=== PATIENT | female | born 1980 | race Caucasian/White ===

== ENCOUNTER 2016-04-23 19:52 | Emergency (ER) | payer OTHER ==
[2016-04-23 20:09] VITALS: BP 124/73; PULSE 127; RESP 18; TEMP 99.4
[2016-04-23] MEDS ORDERED: DIAZEPAM 5 MG/ML 2 ML SYRINGE IM ONE (21:37)
--- NOTE | 2016-04-23 21:45 | ED ---
Neck Injury/Pain HPI - General Chief Complaint: Neck Pain/Injury Stated Complaint: neck,shoulder,back pain SOB Time Seen by Provider: 04/23/16 20:58 Source: RN notes reviewed Mode of arrival: ambulatory Limitations: no limitations - History of Present Illness Initial Comments: Patient is a 35-year-old female presents to the emergency room for evaluation of right-sided neck and shoulder pain. Patient states pain began about 2 days ago. Patient states she woke up with pain on the right side of her neck region down to her shoulder and underneath her shoulder blade. Patient states she's been taking Aleve and [place] with no relief of symptoms. 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 Patient states follow-up with a neurosurgeon about 3 years ago but has not followed up since. Patient states she is experiencing tingling in her fingers. Patient denies weakness. Patient states the right side of her neck and shoulder feels stiff. Patient denies any recent falls or trauma to her neck. Patient denies recent heavy lifting or changes in physical activity. - Related Data Home Medications Medication Instructions Recorded Confirmed ALPRAZolam [ALPRAZolam] 1 mg PO BID 06/23/15 04/23/16 Citalopram Hydrobromide [CeleXA] 20 mg PO HS 06/23/15 04/23/16 Ergocalciferol (Vitamin D2) 50,000 unit PO OLIVA 06/23/15 04/23/16 [Drisdol] HYDROcodone/APAP 10-325MG [[place] 0.5 - 1 tab PO DAILY PRN 06/23/15 04/23/16 10-325] Allergies Allergy/AdvReac Type Severity Reaction Status Date / Time iodine Allergy Unknown Verified 04/23/16 20:09 Review of Systems ROS Statement: Those systems with pertinent positive or pertinent negative responses have been documented in the HPI. ROS Other: All systems not noted in ROS Statement are negative. 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 Limitations: no limitations General appearance: alert, in no apparent distress Head exam: Present: atraumatic, normocephalic, normal inspection Eye exam: Present: normal appearance Pupils: Present: normal accommodation ENT exam: Present: normal exam Neck exam: Present: tenderness (tenderness and spasming of the right trapezius muscle. No cervical spine tenderness on palpation.) Respiratory exam: Present: normal lung sounds bilaterally. Absent: respiratory distress Extremities exam: Present: normal inspection Back exam: Present: normal inspection Neurological exam: Present: alert, oriented X3, CN II-XII intact, normal gait Psychiatric exam: Present: normal affect, normal mood Skin exam: Present: warm, dry, intact, normal color. Absent: rash Course Vital Signs 04/23/16 20:02 Temperature 99.4 F Pulse Rate 127 H Respiratory 18 Rate Blood Pressure 124/73 O2 Sat by Pulse 100 Oximetry Medical Decision Making - Medical Decision Making Patient is a 35-year-old female presents emergency room for evaluation of right- sided neck pain. Patient also complaining shortness of breath 2 days. 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 Offered further workup shortness of breath patient refused. Advised patient to follow-up with her neurosurgeon on Sunday for further evaluation of neck pain. Patient states she is not feeling better after Valium given. Offered to give patient further pain medications and patient declined and walked out of the emergency room before discharged. Disposition Clinical Impression: Strain of neck muscle, Cervical radiculopathy Disposition: Left Against Medical Advice Condition: Stable Referrals: Rico Coe DO [Primary Care Provider] - 1-2 days Time of Disposition: 22:35
== END 2016-04-23 22:39 | disposition left against medical advice (07) ==
LOC: EC 19:52
DX: S16.1XXA Strain of muscle, fascia and tendon at neck level, initial encounter (principal); M54.12 Radiculopathy, cervical region; X58.XXXA Exposure to other specified factors, initial encounter; R06.02 Shortness of breath; I47.1 Supraventricular tachycardia; M25.511 Pain in right shoulder; Z79.899 Other long term (current) drug therapy; Z79.891 Long term (current) use of opiate analgesic; Z91.048 Other nonmedicinal substance allergy status; Z98.61 Coronary angioplasty status; F32.9 Major depressive disorder, single episode, unspecified; F17.200 Nicotine dependence, unspecified, uncomplicated
CPT/HCPCS: 96372; 99283; J3360

== ENCOUNTER 2016-10-23 11:17 | Emergency (ER) | payer OTHER ==
[2016-10-23] MEDS ORDERED: FAMOTIDINE 20 MG/2 ML VIAL IV STA (11:44)
[2016-10-23] MEDS ORDERED: ONDANSETRON 4 MG/2 ML VIAL IVP STA ×2 (11:44→13:32)
[2016-10-23] MEDS ORDERED: SODIUM CHLORIDE 0.9% 1,000 ML IV STA ×2 (11:44)
--- NOTE | 2016-10-23 12:00 | ED ---
General Adult HPI - General Chief complaint: Abdominal Pain Stated complaint: abd & back pain/heart racing Time Seen by Provider: 10/23/16 11:37 Source: patient, RN notes reviewed Mode of arrival: ambulatory Limitations: no limitations - History of Present Illness Initial comments: Patient is a 30-year-old female presents to the emergency room today with a chief complaint of abdominal pain to the epigastric and left upper she also admits to history of SVT. States she has been feeling her heart racing more she admits that she's also experiences some left side chest wall pain. She states all the symptoms started 2 days ago. Patient does admit that she feels like the pain radiates through to the back. Patient admits to feeling nauseated. She denies any other complaints or associated symptoms. Patient denies any recent fever, chills, shortness of breath,, numbness or tingling, dysuria or hematuria, constipation or diarrhea, headaches or visual changes, or any other complaints. - Related Data Home Medications Medication Instructions Recorded Confirmed ALPRAZolam [ALPRAZolam] 1 mg PO HS PRN 06/23/15 10/23/16 HYDROcodone/APAP 10-325MG [[place] 1 tab PO DAILY PRN 06/23/15 10/23/16 10-325] Previous Rx's Medication Instructions Recorded Omeprazole 20 mg PO DAILY #20 capsule. 10/23/16 Ondansetron Odt [Zofran ODT] 4 mg PO Q8HR PRN #20 tab 10/23/16 Allergies Allergy/AdvReac Type Severity Reaction Status Date / Time Iodinated Contrast- Oral and Allergy Unknown Verified 10/23/16 11:39 IV Dye Review of Systems ROS Statement: Those systems with pertinent positive or pertinent negative responses have been documented in the HPI. ROS Other: All systems not noted in ROS Statement are negative. 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 Eye: Pupils are equal, round and reactive to light, extra-ocular movements are intact. No nystagmus. There is normal conjunctiva bilaterally. No signs of icterus. Ears, nose, mouth and throat: There are moist mucous membranes and no oral lesions. Neck: The neck is supple, there is no tenderness or JVD. Cardiovascular: There is a regular rate and rhythm. No murmur, rub or gallop is appreciated. pain anterior chest wall on palpation which reproduces her symptoms. Respiratory: Lungs are clear to auscultation, respirations are non-labored, breath sounds are equal. No wheezes, stridor, rales, or rhonchi. Gastrointestinal: Normal appearance abdomen. Normal bowel sounds. Abdomen soft on palpation. Patient does have tenderness epigastric and left upper quadrants. No rebound tenderness. No guarding. She does have left-sided CVA tenderness.. Musculoskeletal: Normal ROM, no tenderness. Strength 5/5. Sensation intact. Pulses equal bilaterally 2+. Neurological: A&O x 3. CN II-XII intact, There are no obvious motor or sensory deficits. Coordination appears grossly intact. Speech is normal. Skin: Skin is warm and dry and no rashes or lesions are noted. Psychiatric: Cooperative, appropriate mood & affect, normal judgment. Limitations: no limitations Course Vital Signs 10/23/16 10/23/16 11:30 12:09 Temperature 98.1 F Pulse Rate 112 H 100 Respiratory 20 18 Rate Blood Pressure 102/74 O2 Sat by Pulse 99 100 Oximetry Medical Decision Making - Medical Decision Making Patient reexamined at this time shows no signs of distress. Resting comfortably in the stretcher. Patient's abdomen soft on palpation. Labs been reviewed are unremarkable. She does not that symptoms started 3 days ago. EKG shows normal sinus rhythm. Patient. Enzymes are negative. Her pain is reproduced on palpation to the epigastric area. Peptic ulcer disease, versus gallbladder, versus gastritis were discussed with patient. Patient will be discharged home with nausea medication and omeprazole for symptoms advised follow-up with her GI doctor. Advised return to emergency room symptoms increase worsen or for new concerns. She states understanding and is in agreement. - Lab Data Result diagrams: 10/23/16 12:00 10/23/16 12:00 Lab Results 10/23/16 10/23/16 10/23/16 Range/Units 12:00 12:00 12:00 WBC 10.6 (3.8-10.6) k/uL RBC 4.83 (3.80-5.40) m/uL Hgb 14.7 (11.4-16.0) gm/dL Hct 45.7 (34.0-46.0) % MCV 94.5 (80.0-100.0) fL MCH 30.4 (25.0-35.0) pg MCHC 32.1 (31.0-37.0) g/dL RDW 14.2 (11.5-15.5) % Plt Count 297 (150-450) k/uL Neutrophils % 69 % Lymphocytes % 20 % Monocytes % 5 % Eosinophils % 5 % Basophils % 0 % Neutrophils # 7.3 (1.3-7.7) k/uL Lymphocytes # 2.2 (1.0-4.8) k/uL Monocytes # 0.6 (0-1.0) k/uL Eosinophils # 0.5 (0-0.7) k/uL Basophils # 0.0 (0-0.2) k/uL Sodium 143 (137-145) mmol/L Potassium 4.4 (3.5-5.1) mmol/L Chloride 106 (98-107) mmol/L Carbon Dioxide 26 (22-30) mmol/L Anion Gap 11 mmol/L BUN 8 (7-17) mg/dL Creatinine 0.72 (0.52-1.04) mg/dL Est GFR (MDRD) Af Amer >60 (>60 ml/min/1.73 sqM) Est GFR (MDRD) Non-Af >60 (>60 ml/min/1.73 sqM) Glucose 88 (74-99) mg/dL Calcium 9.5 (8.4-10.2) mg/dL Total Bilirubin 0.3 (0.2-1.3) mg/dL AST 18 (14-36) U/L ALT 25 (9-52) U/L Alkaline Phosphatase 59 (38-126) U/L Total Creatine Kinase <20 L (30-135) U/L CK-MB (CK-2) <0.2 (0.0-2.4) ng/mL CK-MB (CK-2) Rel Index Troponin I <0.012 (0.000-0.034) ng/mL Total Protein 7.7 (6.3-8.2) g/dL Albumin 4.7 (3.5-5.0) g/dL Amylase 43 (30-110) U/L Lipase 111 (23-300) U/L Urine Color Urine Appearance (Clear) Urine pH (5.0-8.0) Ur Specific [place] (1.001-1.035) Urine Protein (Negative) Urine Glucose (UA) (Negative) Urine Ketones (Negative) Urine Blood (Negative) Urine Nitrite (Negative) Urine Bilirubin (Negative) Urine Urobilinogen (<2.0) mg/dL Ur Leukocyte Esterase (Negative) Urine HCG, Qual (Not Detectd) 10/23/16 10/23/16 Range/Units 12:00 12:00 WBC (3.8-10.6) k/uL RBC (3.80-5.40) m/uL Hgb (11.4-16.0) gm/dL Hct (34.0-46.0) % MCV (80.0-100.0) fL MCH (25.0-35.0) pg MCHC (31.0-37.0) g/dL RDW (11.5-15.5) % Plt Count (150-450) k/uL Neutrophils % % Lymphocytes % % Monocytes % % Eosinophils % % Basophils % % Neutrophils # (1.3-7.7) k/uL Lymphocytes # (1.0-4.8) k/uL Monocytes # (0-1.0) k/uL Eosinophils # (0-0.7) k/uL Basophils # (0-0.2) k/uL Sodium (137-145) mmol/L Potassium (3.5-5.1) mmol/L Chloride (98-107) mmol/L Carbon Dioxide (22-30) mmol/L Anion Gap mmol/L BUN (7-17) mg/dL Creatinine (0.52-1.04) mg/dL Est GFR (MDRD) Af Amer (>60 ml/min/1.73 sqM) Est GFR (MDRD) Non-Af (>60 ml/min/1.73 sqM) Glucose (74-99) mg/dL Calcium (8.4-10.2) mg/dL Total Bilirubin (0.2-1.3) mg/dL AST (14-36) U/L ALT (9-52) U/L Alkaline Phosphatase (38-126) U/L Total Creatine Kinase (30-135) U/L CK-MB (CK-2) (0.0-2.4) ng/mL CK-MB (CK-2) Rel Index Troponin I (0.000-0.034) ng/mL Total Protein (6.3-8.2) g/dL Albumin (3.5-5.0) g/dL Amylase (30-110) U/L Lipase (23-300) U/L Urine Color Colorless Urine Appearance Clear (Clear) Urine pH 8.0 (5.0-8.0) Ur Specific [place] 1.002 (1.001-1.035) Urine Protein Negative (Negative) Urine Glucose (UA) Negative (Negative) Urine Ketones Negative (Negative) Urine Blood Negative (Negative) Urine Nitrite Negative (Negative) Urine Bilirubin Negative (Negative) Urine Urobilinogen <2.0 (<2.0) mg/dL Ur Leukocyte Esterase Negative (Negative) Urine HCG, Qual Not Detected (Not Detectd) Disposition Clinical Impression: Abdominal pain Disposition: HOME SELF-CARE Condition: Good Instructions: Abdominal Pain (ED) Additional Instructions: Please use medication as discussed. Please follow-up with family doctor in the next 2 days of symptoms have not improved. Please return to emergency room if the symptoms increase or worsen or for any other concerns. Prescriptions: Omeprazole 20 mg PO DAILY #20 capsule. Ondansetron Odt [Zofran ODT] 4 mg PO Q8HR PRN #20 tab PRN Reason: Nausea Referrals: Rico Coe DO [Primary Care Provider] - 1-2 days Time of Disposition: 13:32
[2016-10-23 12:11] VITALS: RESP 18
[2016-10-23 12:15] LABS: Basophils % (A) 0 %; CH 31.6; CHCM 33.6; Eosinophils # (A) 0.5 k/uL (0-0.7); Eosinophils % (A) 5 %; HCT 45.7 % (34.0-46.0); HDW 2.28; HGB 14.7 gm/dL (11.4-16.0); Luc # (Auto) 0.06; Luc % (Auto) 1; Lymphocytes # (A) 2.2 k/uL (1.0-4.8); Lymphocytes % (A) 20 %; MCH 30.4 pg (25.0-35.0); MCHC 32.1 g/dL (31.0-37.0); MCV 94.5 fL (80.0-100.0); Mean Platelet Volume 7.4; Monocytes # (A) 0.6 k/uL (0-1.0); Monocytes % (A) 5 %; Neutrophils # (A) 7.3 k/uL (1.3-7.7); Neutrophils % (A) 69 %; RBC 4.83 m/uL (3.80-5.40); RDW 14.2 % (11.5-15.5); WBC 10.6 k/uL (3.8-10.6); WBC (Perox) 11.02
[2016-10-23 12:26] LABS: ALT 25 U/L (9-52); AST 18 U/L (14-36); Alkaline Phosphatase 59 U/L (38-126); Amylase 43 U/L (30-110); Anion Gap 11 mmol/L; Blood Urea Nitrogen 8 mg/dL (7-17); Calcium 9.5 mg/dL (8.4-10.2); Carbon Dioxide 26 mmol/L (22-30); Chloride 106 mmol/L (98-107); Glucose 88 mg/dL (74-99); Non-African American GFR(MDRD) >60 (>60 ml/min/1.73 sqM); Potassium 4.4 mmol/L (3.5-5.1); Sodium 143 mmol/L (137-145); Total Bilirubin 0.3 mg/dL (0.2-1.3); Total Protein 7.7 g/dL (6.3-8.2)
[2016-10-23 12:30] LABS: Appearance,Urine Clear (Clear); Bilirubin,Urine Negative (Negative); Glucose,Urine (UA) Negative (Negative); Ketones,Urine Negative (Negative); Leukocyte Esterase,Urine Negative (Negative); Nitrite,Urine Negative (Negative); Protein,Urine Negative (Negative); Specific Gravity,Urine 1.002 (1.001-1.035); UA Billing (MACRO vs. MICRO) CHEM; Urobilinogen,Urine <2.0 mg/dL (<2.0)
[2016-10-23 12:37] LABS: Creatine Kinase <20 U/L (30-135)
[2016-10-23 12:50] LABS: Creatine Kinase MB <0.2 ng/mL (0.0-2.4); Troponin I <0.012 ng/mL (0.000-0.034)
--- NOTE | 2016-10-23 12:54 | XR ---
EXAMINATION TYPE: XR chest 2V DATE OF EXAM: 10/23/2016 COMPARISON: 06/23/2015 HISTORY: 36-year-old female left-sided chest pain TECHNIQUE: PA and lateral views FINDINGS: The cardiomediastinal silhouette, aorta, and pulmonary vasculature are within normal limits. Lungs an d pleural spaces are clear. IMPRESSION: No acute cardiopulmonary process.
--- NOTE | 2016-10-23 12:55 | XR ---
EXAMINATION TYPE: XR KUB DATE OF EXAM: 10/23/2016 CLINICAL DATA: 36 year-old female epigastric pain, PHH COMPARISON: 05/27/2012 FINDINGS: Lung bases are clear. No evidence for free intraperitoneal air. No dilated small bowel or air-fluid levels. Scattered air and stool seen throughout the colon extendi ng distally into the rectum. Mild to moderate stool burden. No suspicious calcifications identified. IMPRESSION: 1. Mild to moderate stool burden. 2.No evidence of bowel obstruction or free intraperitoneal air.
[2016-10-23] MEDS ORDERED: PANTOPRAZOLE 40 MG/10 ML VIAL IVP STA (13:32)
[2016-10-23 13:44] VITALS: BP 96/57; PULSE 72; TEMP 98.5
== END 2016-10-23 13:51 | disposition home or self-care (01) ==
LOC: EC 11:17
DX: R10.13 Epigastric pain (principal); R10.12 Left upper quadrant pain; R07.89 Other chest pain; R11.0 Nausea; I47.1 Supraventricular tachycardia; F17.200 Nicotine dependence, unspecified, uncomplicated; Z95.5 Presence of coronary angioplasty implant and graft; Z98.890 Other specified postprocedural states; Z91.041 Radiographic dye allergy status
CPT/HCPCS: 36415; 93005; 80053; 82150; 82550; 82553; 83690; 84484; 85025; 81003; 81025; 71020; 74000; 99284; 96374; 96375 ×2; 96376; 96361; J2405; C9113

== ENCOUNTER → 2016-10-27 | Outpatient (CLI) | payer OTHER ==
--- NOTE | 2016-10-27 17:42 | NM ---
EXAMINATION TYPE: NM hepatobiliary w EF DATE OF EXAM: 10/27/2016 COMPARISON: NONE HISTORY: Pain with abnormal liver function test TECHNIQUE: After the intravenous administration of 4.6 mCi Tc 99m Mebrofenin hepatobiliary scintigrap hy is performed. Immediate images post injection. FINDINGS: There is satisfactory initial accumulation of tracer by the liver. The gallbladder is visualized wit hin 6 minutes. The small bowel activity is noted within 12 minutes. At one hour 8 ounces of oral en sure plus is given to mimic CCK and gallbladder ejection fraction is calculated at 82 %, in the lovely l range. Therefore there is no scintigraphic evidence of cystic or common bile duct obstruction to delatorre ggest acute cholecystitis or gallbladder dyskinesia. IMPRESSION: Exam is within normal limits.
== END ==
LOC: RADNMMAIN 15:05
PROVIDERS: ATTEND Family Medicine
DX: R11.2 Nausea with vomiting, unspecified (principal); R94.5 Abnormal results of liver function studies; R10.9 Unspecified abdominal pain
CPT/HCPCS: 78226; A9537

== ENCOUNTER → 2017-05-24 | Outpatient (CLI) | payer OTHER ==
--- NOTE | 2017-05-24 16:28 | CT ---
EXAMINATION TYPE: CT shoulder LT wo con DATE OF EXAM: 05/24/2017 COMPARISON: NONE HISTORY: Left sided shoulder pain post trauma CT DLP: 252.9 mGycm Automated exposure control for dose reduction was used. FINDINGS: No acute fractures are evident. The acromioclavicular junction appears normal. The humeral head artic ulates with the glenoid. The joint space appears preserved. No significant joint effusion is evident. Soft tissues at the shoulder appear normal. IMPRESSION: 1. NO ACUTE FRACTURES IDENTIFIED. 2. ORIENTATION OF THE HUMERUS IN RELATION TO THE GLENOID APPEARS NORMAL. NO SUSPICIOUS CHANGES TO SUG GEST ACUTE ROTATOR CUFF TEAR ARE IDENTIFIED.
== END | disposition home or self-care (01) ==
LOC: RADCTMAIN 14:14
PROVIDERS: ATTEND Orthopaedic Surgery
DX: M25.512 Pain in left shoulder (principal); M65.812 Other synovitis and tenosynovitis, left shoulder; M75.42 Impingement syndrome of left shoulder; M25.522 Pain in left elbow; M75.82 Other shoulder lesions, left shoulder

== ENCOUNTER 2019-12-01 15:46 | Emergency (ER) | payer OTHER ==
[2019-12-01] MEDS ORDERED: VANCOMYCIN IV PER PHARMACY 1 EACH MISC MISCELLANE PRN (16:18)
--- NOTE | 2019-12-01 16:28 | ED ---
URI HPI - General Chief Complaint: Upper Respiratory Infection Stated Complaint: SOB Time Seen by Provider: 12/01/19 16:06 Source: patient Mode of arrival: ambulatory Limitations: no limitations - History of Present Illness Initial Comments: 39-year-old female presents emergency parents today for chief complaint of failed outpatient therapy for a pneumonia. Patient states that on the 20 November she had a catheterization for possible ablation they state that they did not find an area where they could perform the ablation. Patient states that she was discharged later that night and felt fine she states 2 days later she developed a fever and cough. She states that she had an x-ray of her chest on November 25 which revealed a left lower lobe pneumonia. She states she was then placed on Levaquin and prednisone, a 7 day course. Patient states that she was monitoring her oxygen at home which was within normal limits however symptoms seem to worsen. She Mr. physician who ordered a repeat chest x-ray revealing a worsening left lower lobe pneumonia. Her doctor was worried about failed outpatient antibiotic treatment and sent her to the emergency department for reevaluation and admission for IV antibiotics. Patient states that she was influenza A/B positive in October of this year a few weeks prior to her procedure. Patient states she has completed the prednisone course as well. Denies history of immunocompromise. Patient appears nontoxic on arrival HR elevated. Denies fevers today. - Related Data Home Medications Medication Instructions Recorded Confirmed ALPRAZolam 1 mg PO HS PRN 06/23/15 10/23/16 HYDROcodone/APAP 10-325MG [[place] 1 tab PO DAILY PRN 06/23/15 10/23/16 10-325] Previous Rx's Medication Instructions Recorded Omeprazole 20 mg PO DAILY #20 capsule. 10/23/16 Ondansetron Odt [Zofran ODT] 4 mg PO Q8HR PRN #20 tab 10/23/16 Albuterol Inhaler [Ventolin Hfa 1 puff INHALATION RT-QID PRN 30 12/01/19 Inhaler] Days #60 puff Allergies Allergy/AdvReac Type Severity Reaction Status Date / Time Iodinated Contrast Media Allergy Unknown Verified 12/01/19 15:52 [Iodinated Contrast- Oral and IV Dye] Review of Systems ROS Statement: Those systems with pertinent positive or pertinent negative responses have been documented in the HPI. ROS Other: All systems not noted in ROS Statement are negative. 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 No nystagmus. There is normal conjunctiva bilaterally. No signs of icterus. Ears, nose, mouth and throat: There are moist mucous membranes and no oral lesions. Neck: The neck is supple, there is no tenderness or JVD. Cardiovascular: There is a regular rate and rhythm. No murmur, rub or gallop is appreciated. Respiratory: Lungs are clear to auscultation, respirations are non-labored, breath sounds are equal. No wheezes, stridor, rales, or rhonchi. Gastrointestinal: Soft, non-distended, non-tender abdomen without masses or organomegaly noted. There is no rebound or guarding present. Musculoskeletal: Normal ROM, no tenderness. Strength 5/5. Sensation intact. Radial pulses equal bilaterally 2+. Neurological: A&O x 3. CN II-XII intact grossly, There are no obvious motor or sensory deficits. Coordination appears grossly intact. Speech is normal. Skin: Skin is warm and dry and no rashes or lesions are noted. No LE edema. Psychiatric: Cooperative, appropriate mood & affect, normal judgment. Limitations: no limitations Course Vital Signs 12/01/19 12/01/19 12/01/19 15:48 17:30 18:47 Temperature 97.9 F Pulse Rate 110 H 89 83 Respiratory 18 16 16 Rate Blood Pressure 118/70 104/64 109/75 O2 Sat by Pulse 99 100 100 Oximetry Medical Decision Making - Medical Decision Making CT no bronchopneumonia. No masses. Patient Labs no leukocytosis. Patient does not appears SOB. She has obvious URI symptoms, couhg. No leg swelling. No hemoptysis. VS after initial WNL. Patient not hypoxia. Patient appears nontoxic. Patient case discussed with Dr. Liang who reviewed CT/Labs discussed history in detail he is agreeable with discharge and at this time we feel this is most likely virla. Patient agreeable to discharge with inhaler and close PCP f/u. Patient discharged appearing well. Ventricular rate 72 bpm, WI interval 174 ms, QRS restorationism 80 ms the QT/QTC 388/424 ms. This is a normal sinus no ST elevation or depression. - Lab Data Result diagrams: 12/01/19 16:28 12/01/19 16:28 Lab Results 12/01/19 12/01/19 12/01/19 Range/Units 16:28 16:28 16:28 WBC 9.4 (3.8-10.6) k/uL RBC 4.70 (3.80-5.40) m/uL Hgb 12.8 (11.4-16.0) gm/dL Hct 40.4 (34.0-46.0) % MCV 86.1 (80.0-100.0) fL MCH 27.4 (25.0-35.0) pg MCHC 31.8 (31.0-37.0) g/dL RDW 15.0 (11.5-15.5) % Plt Count 350 (150-450) k/uL Neutrophils % 70 % Lymphocytes % 19 % Monocytes % 5 % Eosinophils % 3 % Basophils % 1 % Neutrophils # 6.6 (1.3-7.7) k/uL Lymphocytes # 1.8 (1.0-4.8) k/uL Monocytes # 0.5 (0-1.0) k/uL Eosinophils # 0.3 (0-0.7) k/uL Basophils # 0.1 (0-0.2) k/uL Hypochromasia Slight Sodium 140 (137-145) mmol/L Potassium 3.6 (3.5-5.1) mmol/L Chloride 107 (98-107) mmol/L Carbon Dioxide 25 (22-30) mmol/L Anion Gap 8 mmol/L BUN 8 (7-17) mg/dL Creatinine 0.76 (0.52-1.04) mg/dL Est GFR (CKD-EPI)AfAm >90 (>60 ml/min/1.73 sqM) Est GFR (CKD-EPI)NonAf >90 (>60 ml/min/1.73 sqM) Glucose 97 (74-99) mg/dL Plasma Lactic Acid [place] 1.3 (0.7-2.0) mmol/L Calcium 9.5 (8.4-10.2) mg/dL Total Bilirubin 0.2 (0.2-1.3) mg/dL AST 17 (14-36) U/L ALT 8 (4-34) U/L Alkaline Phosphatase 63 (38-126) U/L Total Protein 7.9 (6.3-8.2) g/dL Albumin 4.7 (3.5-5.0) g/dL Disposition Clinical Impression: Cough, Dyspnea, Upper respiratory infection Disposition: HOME SELF-CARE Condition: Good Instructions (If sedation given, give patient instructions): Upper Respiratory Infection (ED) Additional Instructions: Please use medication as discussed. Please follow-up with family doctor in the next 2 days.. Please return to emergency room if the symptoms increase or worsen or for any other concerns. Prescriptions: Albuterol Inhaler [Ventolin Hfa Inhaler] 1 puff INHALATION RT-QID PRN 30 Days #60 puff PRN Reason: Wheezing Is patient prescribed a controlled substance at d/c from ED?: No Referrals: Nonstaff,Physician [REFERRING] - 1-2 days Time of Disposition: 20:13
[2019-12-01] MEDS ORDERED: VANCOMYCIN 1,000 MG in SODIUM CHLORIDE 0.9% 250 ML IVPB STA (16:42)
[2019-12-01 16:52] LABS: Basophils # (A) 0.1 k/uL (0-0.2); Basophils % (A) 1 %; Eosinophils # (A) 0.3 k/uL (0-0.7); Eosinophils % (A) 3 %; HCT 40.4 % (34.0-46.0); HGB 12.8 gm/dL (11.4-16.0); Hypochromasia Slight; Lymphocytes # (A) 1.8 k/uL (1.0-4.8); Lymphocytes % (A) 19 %; MCH 27.4 pg (25.0-35.0); MCHC 31.8 g/dL (31.0-37.0); MCV 86.1 fL (80.0-100.0); Mean Platelet Volume 7.3; Monocytes # (A) 0.5 k/uL (0-1.0); Monocytes % (A) 5 %; Neutrophils # (A) 6.6 k/uL (1.3-7.7); Neutrophils % (A) 70 %; Platelet Count 350 k/uL (150-450); WBC 9.4 k/uL (3.8-10.6)
[2019-12-01 17:01] LABS: ALT 8 U/L (4-34); AST 17 U/L (14-36); African American GFR (CKD) >90 (>60 ml/min/1.73 sqM); Albumin 4.7 g/dL (3.5-5.0); Alkaline Phosphatase 63 U/L (38-126); Anion Gap 8 mmol/L; Blood Urea Nitrogen 8 mg/dL (7-17); Calcium 9.5 mg/dL (8.4-10.2); Carbon Dioxide 25 mmol/L (22-30); Chloride 107 mmol/L (98-107); Glucose 97 mg/dL (74-99); Non-African American GFR(CKD) >90 (>60 ml/min/1.73 sqM); Potassium 3.6 mmol/L (3.5-5.1); Sodium 140 mmol/L (137-145); Total Bilirubin 0.2 mg/dL (0.2-1.3); Total Protein 7.9 g/dL (6.3-8.2)
[2019-12-01] MEDS ORDERED: RX INFO: IV CONTRAST WAS GIVEN 1 EACH MISC MISCELLANE PRN (17:05)
[2019-12-01] MEDS ORDERED: methylPREDNISolone SOD SUCCI 125 MG/2 ML VIAL IV STA ×2 (17:06→18:29)
[2019-12-01] MEDS ORDERED: diphenhydrAMINE 50 MG/ML 1 ML VIAL IVP STA ×2 (17:06→18:29)
[2019-12-01] MEDS ORDERED: FAMOTIDINE 20 MG/2 ML VIAL IV STA ×2 (17:06→18:29)
[2019-12-01] MEDS ORDERED: SODIUM CHLORIDE 0.9% 500 ML 500 ML IV ONE (17:07)
[2019-12-01] MEDS ORDERED: SODIUM CHLORIDE 0.9% 1,000 ML IV SCH (17:15)
--- NOTE | 2019-12-01 20:07 | CT ---
EXAMINATION TYPE: CT chest wo con DATE OF EXAM: 12/01/2019 COMPARISON: 04/03/2011 HISTORY: Pneumonia. Wrist pain CT DLP: 207.6 mGycm Automated exposure control for dose reduction was used. Images were obtained from the thoracic inlet to the diaphragm with no contrast. There is minimal pleural thickening at the lung apices. The lungs are clear of consolidation. There i s no evidence of a pulmonary mass. There is no pleural effusion. Upper abdominal soft tissues are int act. There is 2 cm emphysematous bleb at the right lung apex. Heart size is normal. There is no pericardial effusion. There are no hilar masses. There is no medias tinal adenopathy. Thoracic spine is intact. There is no compression fracture. Sternum is intact. IMPRESSION: Negative CT scan of the chest. No evidence of bronchopneumonia. No adverse change compared to old exa m.
[2019-12-01 20:42] VITALS: BP 97/65; PULSE 95; RESP 19; TEMP 99.4
[2019-12-02] MEDS ORDERED: VANCOMYCIN 1,000 MG in SODIUM CHLORIDE 0.9% 250 ML IVPB SCH ×2
== END 2019-12-01 20:45 | disposition home or self-care (01) ==
LOC: EC 15:46
DX: J06.9 Acute upper respiratory infection, unspecified (principal); F41.9 Anxiety disorder, unspecified; F32.9 Major depressive disorder, single episode, unspecified; F17.200 Nicotine dependence, unspecified, uncomplicated; Z79.899 Other long term (current) drug therapy; Z91.041 Radiographic dye allergy status; Z95.5 Presence of coronary angioplasty implant and graft; Z20.828 Contact with and (suspected) exposure to other viral communicable diseases
CPT/HCPCS: 36415; 93005; 80053; 83605; 85025; 87040; 71250; 99285; 96365; 96367; 96366; 96375 ×3; U0003; J3370; J1200; J2930; J0696

== ENCOUNTER 2020-05-03 09:09 | Day surgery (SDC) | payer BC ==
[2020-04-30 09:53] VITALS: BMI 19.6
[~2020-05-03 09:09] MED LIST: DEXAMETHASONE SOD PHOSPHATE 4 MG/ML 1 ML VIAL IV ONE; HYDROmorphone 0.5 MG/0.5 ML SYRINGE IVP PRN; LACTATED RINGERS 1,000 ML IV SCH; MIDAZOLAM 2 MG/2 ML VIAL IV PRN; ONDANSETRON 4 MG/2 ML VIAL IVP ONE; Pre Op ABX Message 1 EACH MISC MISCELLANE ONE; fentaNYL (PF) 50 MCG/ML 2 ML AMP IV PRN
[2020-05-03 09:36] VITALS: RESP 16
[2020-05-03] MEDS ORDERED: SCOPOLAMINE 1.5MG/72HR PATCH TRANSDERM ONE (09:43)
[2020-05-03] MEDS ORDERED: LIDOCAINE 1% (10MG/ML) FOR IV START INTRADERMA ONE (09:43)
[2020-05-03] MEDS ORDERED: MIDAZOLAM 2 MG/2 ML VIAL ONE (10:59)
[2020-05-03] MEDS ORDERED: fentaNYL (PF) 50 MCG/ML 2 ML AMP ONE (10:59)
[2020-05-03] MEDS ORDERED: PROPOFOL 10 MG/ML 20 ML VIAL IV ONE (10:59)
[2020-05-03] MEDS ORDERED: LIDOCAINE 1% INJ 10MG/ML (20 ML MDV) ONE (10:59)
[2020-05-03] MEDS ORDERED: IBUPROFEN 600 MG TAB PO PRN (11:26)
[2020-05-03] MEDS ORDERED: METOCLOPRAMIDE 5 MG/ML 2 ML VIAL IVP PRN (11:26)
[2020-05-03] MEDS ORDERED: diphenhydrAMINE 50 MG/ML 1 ML VIAL IVP PRN (11:26)
[2020-05-03] MEDS ORDERED: ONDANSETRON 4 MG/2 ML VIAL IVP PRN (11:26)
[2020-05-03] MEDS ORDERED: SIMETHICONE 80 MG CHEWABLE PO PRN (11:26)
[2020-05-03] MEDS ORDERED: Acetaminophen-Codeine 300-30mg TAB PO PRN ×2 (11:26)
[2020-05-03] MEDS ORDERED: KETOROLAC 15 MG/ML 1 ML VIAL IVP PRN (11:26)
[2020-05-03] MEDS ORDERED: LACTATED RINGERS 1,000 ML IV SCH (11:30)
--- NOTE | 2020-05-03 11:33 | P.OP ---
Date of Procedure: 05/03/20 Preoperative Diagnosis: #1. Menometrorrhagia Postoperative Diagnosis: Same Procedure(s) Performed: #1. Diagnostic hysteroscopy #2. Dilation and curettage #3. NovaSure endometrial ablation Anesthesia: other (Gen. by face mask) Surgeon: Fabian Argueta Estimated Blood Loss (ml): 5 IV fluids (ml): 200 Urine output (ml): 5 Pathology: none sent (Endometrial curettings) Condition: stable Disposition: PACU Operative Findings: Gravid pelvic examination demonstrated a 5 week midplane mobile normal shaped uterus with normal adnexa bilaterally. Intraoperatively, the cervix is approximately 3 cm in length while the uterus is approximate 0.57 m in length. Using the hysteroscope, the bilateral tubal ostia were seen and there was a moderate amount of shaggy endometrium I merely at the fundal right anterior portion of the uterus. Sharp curettage produced a small to moderate amount of tissue onto a Telfa in the vagina. There was no other pathology noted using hysteroscope. The settings for the NovaSure tool where a length of 5.5 cm, a width of 4.8 cm for a total power 145 W. A total run time of 83 seconds was noted at which time the base unit read "procedure complete." The postprocedural result appeared to be excellent. The patient is a candidate for vaginal instructed he should become necessary in the future. Description of Procedure: Patient was prepped and draped in usual fashion after general anesthesia was administered by the anesthesiologist. A weighted speculum was placed in the bladder draining approximate 5 mL of clear nurys urine. A single-tooth tenaculum was utilized to grasp the anterior lip of the cervix allowing the cervix and uterus to be sounded as noted above to 3 and 8.5 cm respectively. Serial dilation was carried out to admit the diagnostic hysteroscope. The in vitro cavity was distended with normal saline and the findings are as noted above. There was a moderate amount shaggy tissue primarily in the right anterior fundal region. The bilateral tubal ostia were seen. There was no other pathology. After adequate hysteroscopy had been performed, the scope was set aside and a Telfa placed in the vagina allowing curettage with a small to medium sharp curette removing the tissue onto the Telfa in the vagina. Small to moderate amount of tissue was returned. The typical gritty texture was encountered throughout. The NovaSure tool was then placed into the endometrial cavity, opened, and seated well. The settings were a length of 5.5 cm with a width of 4.8 cm for a total power 145 W. The cavity check was performed and passed without difficulty. The tool was enabled and the run was started. After a run time of 83 seconds, the base unit disengaged and read "procedure complete." The 2 was closed, removed, and discarded and the diagnostic hysteroscope replaced which demonstrated an excellent result. All instrumentation was then removed. There was no ongoing bleeding from either the cervix or from the tenaculum sites. Assessment a blood loss for the case was less than 5 mL. There were no complications. All sponge, instrument, needle counts were correct. The patient is a reasonable candidate for vaginal instructed he should become necessary in the near future. The patient tolerated the procedure well and proceeded to the recovery room in stable condition.
[2020-05-03] MEDS ORDERED: KETOROLAC 15 MG/ML 1 ML VIAL IVP ONE (11:34)
[2020-05-03 11:36] VITALS: TEMP 97.4
[2020-05-03 12:59] VITALS: BP 106/67; PULSE 70
== END 2020-05-03 13:01 | disposition home or self-care (01) ==
LOC: OR 09:09
PROVIDERS: ATTEND Obstetrics & Gynecology
DX: N92.1 Excessive and frequent menstruation with irregular cycle (principal); F41.9 Anxiety disorder, unspecified; F41.0 Panic disorder [episodic paroxysmal anxiety]; I49.8 Other specified cardiac arrhythmias; I47.1 Supraventricular tachycardia; Z72.0 Tobacco use; Z98.890 Other specified postprocedural states; Z87.442 Personal history of urinary calculi; Z91.048 Other nonmedicinal substance allergy status; Z82.49 Family history of ischemic heart disease and other diseases of the circulatory system; Z83.3 Family history of diabetes mellitus; Z83.2 Family history of diseases of the blood and blood-forming organs and certain disorders involving the immune mechanism; Z82.0 Family history of epilepsy and other diseases of the nervous system; Z83.42 Family history of familial hypercholesterolemia; Z84.89 Family history of other specified conditions; Z79.899 Other long term (current) drug therapy; Z88.1 Allergy status to other antibiotic agents; Z91.041 Radiographic dye allergy status
CPT/HCPCS: 81025; 88305; 58563; J2250; J1100; J2405; J2001; J3010; J1885; J2704; J1170

== ENCOUNTER → 2021-09-16 | Outpatient (CLI) | payer BC ==
[2021-09-16 16:59] LABS: Basophils # (A) 0.1 k/uL (0-0.2); Basophils % (A) 1 %; Eosinophils # (A) 0.2 k/uL (0-0.7); Eosinophils % (A) 2 %; HCT 45.2 % (34.0-46.0); HGB 14.9 gm/dL (11.4-16.0); Lymphocytes # (A) 2.2 k/uL (1.0-4.8); Lymphocytes % (A) 22 %; MCH 32.3 pg (25.0-35.0); MCHC 32.9 g/dL (31.0-37.0); MCV 98.2 fL (80.0-100.0); Mean Platelet Volume 8.3; Monocytes # (A) 0.5 k/uL (0-1.0); Monocytes % (A) 5 %; Neutrophils # (A) 6.8 k/uL (1.3-7.7); Neutrophils % (A) 69 %; Platelet Count 249 k/uL (150-450); RDW 13.6 % (11.5-15.5); WBC 9.9 k/uL (3.8-10.6)
[2021-09-16 17:56] LABS: Erythrocyte Sedimentation Rate 2 mm/hr (0-20)
--- NOTE | 2021-09-16 21:45 | XR ---
EXAMINATION TYPE: XR chest 2V DATE OF EXAM: 09/16/2021 4:38 PM COMPARISON: CT chest 12/01/2019. TECHNIQUE: XR chest 2V . CLINICAL INDICATION:Female, 40 years old with history of chest pain; FINDINGS: Lungs/Pleura: There is no evidence of pleural effusion, focal consolidation, or pneumothorax. Pulmonary vascularity: Unremarkable. Heart/mediastinum: Cardiomediastinal silhouette is unremarkable. Loop recorder projects over the lef t chest wall. Musculoskeletal: No acute osseous pathology. IMPRESSION: No acute cardiopulmonary disease/process.
[2021-09-16 23:43] LABS: C Reactive Protein <0.30 mg/dL (0.00-0.80); Magnesium 2.3 mg/dL (1.5-2.4); Rheumatoid Factor, Qnt <10 IU/mL (0-15)
[2021-09-17 00:52] LABS: ALT 11 U/L (8-44); AST 17 U/L (13-35); African American GFR (CKD) 90.3 (60.0-200.0); Albumin 4.5 g/dL (3.8-4.9); Albumin/Globulin Ratio 2.08 (1.60-3.17); Alkaline Phosphatase 54 U/L (41-126); BUN/Creat Ratio 10.28 Ratio (12.00-20.00); Blood Urea Nitrogen 9.5 mg/dL (9.0-27.0); Calcium 9.1 mg/dL (8.7-10.3); Carbon Dioxide 25.6 mmol/L (20.0-27.5); Chloride 101 mmol/L (96-109); Globulin 2.2 g/dL (1.6-3.3); Glucose 100 mg/dL (70-110); Non-African American GFR(CKD) 77.9 (60.0-200.0); Potassium 4.2 mmol/L (3.5-5.5); Sodium 137 mmol/L (135-145); Total Bilirubin <0.15 mg/dL (0.30-1.20); Total Protein 6.6 g/dL (6.2-8.2)
== END | disposition home or self-care (01) ==
LOC: LABWHC1 16:10
PROVIDERS: ATTEND Nurse Practitioner
DX: R93.89 Abnormal findings on diagnostic imaging of other specified body structures (principal); R42 Dizziness and giddiness
CPT/HCPCS: 36415; 71046; 80053; 83735; 85025; 85652; 86038; 86140; 86431

== ENCOUNTER → 2021-10-21 | Outpatient (CLI) | payer BC ==
[2021-10-21 11:03] LABS: Basophils % (A) 0 %; Eosinophils % (A) 0 %; HGB 15.4 gm/dL (11.4-16.0); Lymphocytes # (A) 0.5 k/uL (1.0-4.8); Lymphocytes % (A) 4 %; MCH 32.2 pg (25.0-35.0); MCHC 32.8 g/dL (31.0-37.0); MCV 98.1 fL (80.0-100.0); Mean Platelet Volume 7.5; Monocytes # (A) 0.2 k/uL (0-1.0); Monocytes % (A) 2 %; Neutrophils # (A) 11.5 k/uL (1.3-7.7); Neutrophils % (A) 94 %; Platelet Count 205 k/uL (150-450); RBC 4.79 m/uL (3.80-5.40); RDW 13.5 % (11.5-15.5); WBC 12.2 k/uL (3.8-10.6)
[2021-10-21 11:21] LABS: ALT 35 U/L (4-34); AST 32 U/L (14-36); African American GFR (CKD) >90 (>60 ml/min/1.73 sqM); Albumin 4.8 g/dL (3.5-5.0); Albumin/Globulin Ratio 1.7; Alkaline Phosphatase 80 U/L (38-126); Anion Gap 14 mmol/L; Blood Urea Nitrogen 7 mg/dL (7-17); Calcium 9.6 mg/dL (8.4-10.2); Carbon Dioxide 21 mmol/L (22-30); Chloride 103 mmol/L (98-107); Creatine Kinase 28 U/L (30-135); Globulin 2.8 g/dL; Glucose 138 mg/dL (74-99); Non-African American GFR(CKD) >90 (>60 ml/min/1.73 sqM); Potassium 4.3 mmol/L (3.5-5.1); Sodium 138 mmol/L (137-145); Total Bilirubin 0.8 mg/dL (0.2-1.3); Total Protein 7.6 g/dL (6.3-8.2)
[2021-10-21 11:35] LABS: T4, Free (Free Thyroxine) 0.85 ng/dL (0.78-2.19)
--- NOTE | 2021-10-21 11:36 | CT ---
EXAMINATION TYPE: CT angio chest DATE OF EXAM: 10/21/2021 11:13 AM COMPARISON: 12/01/2019 HISTORY: Dyspnea CT DLP: 126.50 mGycm Automated exposure control for dose reduction was used. CONTRAST: CTA scan of the thorax is performed with IV Contrast, patient injected with 59 mL of Isovue 370, pulm onary embolism protocol. . FINDINGS: LUNGS: Biapical pleural thickening with paraseptal emphysematous changes. No pneumothorax or consolid ative pneumonia. 2 mm nodule anterior segment right upper lobe image 30. Subpleural nodule image 44 2 mm right upper lobe. No consolidative pneumonia or pleural effusion. No pneumothorax. MEDIASTINUM: There is satisfactory enhancement of the pulmonary artery and its branches, there is no CT evidence for pulmonary embolism. There are no greater than 1 cm hilar or mediastinal lymph nodes. No pericardial effusion is seen. Aorta of normal caliber. OTHER: No additional significant abnormality is seen. IMPRESSION: 1. No diagnostic evidence of pulmonary embolism. 2. There are sub-5 mm pulmonary nodules too small to characterize but have a benign appearance. Recom mend 12 month annual screening.
--- NOTE | 2021-10-22 10:00 | CA ---
Transthoracic Echo Report Name: Pauline Sanchez Age: 41 Gender: F : 1980 Exam Date: 10/21/2021 10:58 Exam Location: [facility] Ht (in): 65 Wt (lb): 119 Ordering Physician: José Miguel Yan MD Attending/Referring Phys: Bulk Station Agent Brina Mims RDCS Procedure CPT: Indications: R06.00 Dyspnea Cardiac Hx: Technical Quality: Fair Contrast 1: Total Dose (mL): Contrast 2: Total Dose (mL): MEASUREMENTS (Male / Female) Normal Values 2D ECHO LV Diastolic Diameter PLAX 3.7 cm 4.2 - 5.9 / 3.9 - 5.3 cm LV Systolic Diameter PLAX 2.5 cm IVS Diastolic Thickness 0.8 cm 0.6 - 1.0 / 0.6 - 0.9 cm LVPW Diastolic Thickness 0.6 cm 0.6 - 1.0 / 0.6 - 0.9 cm LV Relative Wall Thickness 0.4 RV Internal Dim ED PLAX 2.8 cm LA Volume 22.9 cm??? 18 - 58 / 22 - 52 cm??? M-MODE Aortic Root Diameter MM 2.5 cm LA Systolic Diameter MM 2.7 cm LA Ao Ratio MM 1.0 AV Cusp Separation MM 1.9 cm DOPPLER AV Peak Velocity 113.2 cm/s AV Peak Gradient 5.1 mmHg MV Area PHT 3.7 cm??? Mitral E Point Velocity 69.9 cm/s Mitral A Point Velocity 87.0 cm/s Mitral E to A Ratio 0.8 MV Deceleration Time 207.0 ms FINDINGS Left Ventricle Normal Left ventricular size, wall thickness, systolic function with no obvious regional wall motion abnormalities. Normal Left ventricular diastolic filling pattern. Left ventricular ejection fraction is estimated at 55-60 %. Right Ventricle Normal right ventricular size and function. Right ventricular systolic pressure within normal limits. Right Atrium Normal right atrial size. Left Atrium Normal left atrial size. Mitral Valve Structurally normal mitral valve. No mitral stenosis. No mitral regurgitation. Aortic Valve No aortic valve stenosis or regurgitation. Tricuspid Valve Structurally normal tricuspid valve. Mild tricuspid regurgitation. Pulmonic Valve Trace pulmonic regurgitation. Pericardium No pericardial effusion. Aorta Normal size aortic root and proximal ascending aorta. CONCLUSIONS Normal left ventricular dimension and systolic function No significant valvular abnormalities noted Previewed by: Dr. Henrique Pina MD (Electronically Signed) Final Date: 22 October 2021 09:59
== END | disposition home or self-care (01) ==
LOC: RADCTMAIN 10:08
PROVIDERS: ATTEND Internal Medicine Critical Care Medicine
DX: I07.1 Rheumatic tricuspid insufficiency (principal); R91.8 Other nonspecific abnormal finding of lung field
CPT/HCPCS: 93306; 84439; 83880; 80053; 82550; 84443; 85025; 71275; 36415; Q9967

== ENCOUNTER → 2021-11-21 | Outpatient (CLI) | payer BC ==
--- NOTE | 2021-11-21 10:25 | CT ---
EXAMINATION TYPE: CT angio head DATE OF EXAM: 11/21/2021 9:41 AM COMPARISON: None. HISTORY: Headache and dizziness CT DLP: 1887.3 mGycm Automated exposure control for dose reduction was used. TECHNIQUE: Performed without and with IV Contrast, patient injected with 100ml mL of Isovue 370. 3D reconstructed images are created on an independent workstation and reviewed.. FINDINGS: Noncontrast images show no acute intracranial hemorrhage or midline shift. Ventricles and sulci are w ithin normal limits in size. Bella-white matter differentiation is maintained. The globes are intact a nd the visualized sinuses are clear. CTA images show codominant vertebral arteries filling the basilar artery. Hypoplastic left posterior communicating artery. Patent right posterior indicating artery. Hypoplastic right P1 segment with P2 segment being filled by the patient right posterior communicating artery. No significant focal stenos is or aneurysm in the posterior circulation. Patent anterior indicating artery. No significant focal stenosis or aneurysm in the anterior circulation. IMPRESSION: No aneurysm identified. Unremarkable study.
== END | disposition home or self-care (01) ==
LOC: RADCTMAIN 08:31
PROVIDERS: ATTEND Family Medicine
DX: R51.9 Headache, unspecified (principal); R42 Dizziness and giddiness
CPT/HCPCS: 70496; Q9967

== ENCOUNTER → 2022-01-26 | Outpatient (CLI) | payer BC ==
--- NOTE | 2022-01-26 09:34 | MR ---
MRI CERVICAL SPINE: CLINICAL HISTORY: CERVICALGIA. Headache with neck pain causing numbness or tingling into the bilatera l upper extremities for 6 years per patient. TECHNIQUE: Multiplanar, multisequence imaging of the cervical spine is performed without IV contrast. COMPARISON: Outside cervical spine x-ray January 09, 2022. FINDINGS: Sagittal images of the cervical spine show the craniocervical junction to appear within nor mal limits. The cervical and upper thoracic spinal cord is normal in course, caliber, and signal. V ertebral alignment is stable and satisfactory. The vertebral body and intravertebral disk heights ar e normal. The bone marrow signal intensity is within normal limits. Axial images show there is no significant focal disk disease, spinal canal stenosis, neural foraminal narrowing, or spinal cord compromise at any cervical level. There is at least mild mucosal thickenin g in the right sphenoid sinus. There is more moderate mucosal thickening with suspected dependent flu id in the left maxillary sinus for Reference sagittal images 5 through 8. IMPRESSION: Negative MRI of the cervical spine, no significant abnormality is seen to account for federico allred's clinical symptoms. Sphenoid sinusitis is incidentally noted as detailed above.
== END | disposition home or self-care (01) ==
LOC: RADMRIMAIN 07:39
PROVIDERS: ATTEND Psychiatry & Neurology Neurology
DX: J32.2 Chronic ethmoidal sinusitis (principal)
CPT/HCPCS: 72141

== ENCOUNTER → 2022-02-22 | Outpatient (CLI) | payer BC ==
--- NOTE | 2022-02-23 04:32 | MR ---
EXAMINATION TYPE: MR shoulder RT wo con DATE OF EXAM: 02/22/2022 COMPARISON: 06/21/2012 HISTORY: Right shoulder pain/injury, fall 1 month ago. Multiplanar multiecho imaging of the right shoulder performed with no contrast. The biceps tendon is intact. Subscapularis tendon is intact. The glenoid edward appear intact. The sup raspinatus tendon is intact. The infraspinatus tendon is intact. There is a 5 mm degenerative cyst in the posterior aspect of the humeral head. The AC joint is intact. No significant subacromial impinge ment. The shoulder joint spaces are fairly normal. IMPRESSION: No significant abnormality of the right shoulder. No evidence of rotator cuff tear. No fracture. No a dverse change overall compared to old exam.
== END | disposition home or self-care (01) ==
LOC: RADMRIMAIN 15:02
PROVIDERS: ATTEND Orthopaedic Surgery
DX: M25.511 Pain in right shoulder (principal)

== ENCOUNTER → 2023-10-26 | Outpatient (CLI) | payer BC ==
--- NOTE | 2023-11-04 11:15 | MM ---
Reason for Exam: Screening (asymptomatic). Baseline mammogram. Patient History: Menarche at age 13. First Full-Term at age 22. Patient used Hormonal Contraceptives for 4 years. Maternal aunt (teresita) had breast cancer. Maternal aunt (vivien) had breast cancer under age 50. Last menstrual period: 10/20/2023 Risk Values: Jeanette 5 year model risk: 0.6%. NCI Lifetime model risk: 8.8%. Prior Study Comparison: Patient's first Mammogram. Tissue Density: The breasts are heterogeneously dense, which may obscure small masses. Findings: Analyzed By CAD. The pattern is symmetrical. No suspicious groups of microcalcifications, spiculated or lobular masses, architectural distortion or other secondary signs of malignancy are mammographically apparent. Overall Assessment: Negative, BI-RAD 1 Management: Screening Mammogram of both breasts in 1 year. A negative mammogram report should not preclude additional follow up of suspicious palpable abnormalities. Patient should continue monthly self breast exam. A clinical breast exam by your physician is recommended on an annual basis and results should be correlated with mammographic findings. Note on Jeanette scores and lifetime risk: 1. A Jeanette score greater than 3% is considered moderate risk. If this is the case, consider specialist referral to assess eligibility for a risk reducing agent. 2. If overall lifetime risk for the development of breast cancer is 20% or higher, the patient may qualify for future screening with alternating mammogram and breast MRI. [facility], , 11/04/2023 11:12 AM. Electronically signed and approved by: Jeyson Kaplan D.O. Radiologis
== END | disposition home or self-care (01) ==
LOC: RADMAMWWP 06:52
PROVIDERS: ATTEND Student in an Organized Health Care Education/Training Program
DX: Z12.31 Encounter for screening mammogram for malignant neoplasm of breast
CPT/HCPCS: 77063; 77067

== ENCOUNTER → 2023-10-31 | Outpatient (CLI) | payer BC ==
--- NOTE | 2023-10-31 10:33 | MR ---
EXAMINATION TYPE: MR cervical spine wo con DATE OF EXAM: 10/31/2023 COMPARISON: 01/26/2022 HISTORY: Neck pain, stiffness, headaches, faraz ue heaviness TECHNIQUE: Multiplanar, multisequence images of the cervical spine were acquired without contrast. C2-C3: Mild disc desiccation. No disc bulge/herniation or protrusion. No Canal stenosis. Foramina are patent bilaterally. C3-C4: Mild disc desiccation. No disc bulge/herniation or protrusion. No Canal stenosis. Foramina are patent bilaterally C4-C5: Mild disc desiccation. No disc bulge/herniation or protrusion. No Canal stenosis. Foramina are patent bilaterally C5-C6: Mild disc desiccation. No disc bulge/herniation or protrusion. No Canal stenosis. Foramina are patent bilaterally C6-C7: Mild disc desiccation. No disc bulge/herniation or protrusion. No Canal stenosis. Foramina are patent bilaterally C7-T1: No evidence for degenerative disc disease. No disc bulge/herniation or protrusion. No Canal stenosis. Foramina are patent bilaterally. Cervical segments are intact. There is normal alignment. Cervical spinal cord is of normal signal. Craniovertebral junction relationships are within normal limits. IMPRESSION: 1. No disc herniation, canal stenosis, or foraminal encroachment. 2. Multilevel disc desiccation. [facility], , 10/31/2023 10:31 AM
== END | disposition home or self-care (01) ==
LOC: RADMRIMAIN 09:25
PROVIDERS: ATTEND Orthopaedic Surgery
DX: M50.31 Other cervical disc degeneration, high cervical region (principal)
CPT/HCPCS: 72141

== ENCOUNTER → 2023-11-01 | Outpatient (CLI) | payer BC ==
[2023-11-01 11:18] LABS: Basophils # (A) 0.03 X 10*3/uL (0.00-0.10); Basophils % (A) 0.2 %; Eosinophils # (A) 0.13 X 10*3/uL (0.04-0.35); HGB 16.2 g/dL (12.0-15.0); Lymphocytes # (A) 4.03 X 10*3/uL (0.90-5.00); Lymphocytes % (A) 29.5 %; MCH 31.6 pg (27.0-32.0); MCHC 33.1 g/dL (32.0-37.0); MCV 95.7 FL (80.0-97.0); Mean Platelet Volume 10.1 FL (9.5-12.2); Monocytes % (A) 2.9 %; NRBC Per 100 WBC 0 X 10*3/uL (0.00-0.01); Neutrophils # (A) 8.97 X 10*3/uL (1.80-7.70); Neutrophils % (A) 65.8 %; Platelet Count 300 X 10*3/uL (140-440); RBC 5.12 X 10*6/uL (4.10-5.20); RDW 14.4 % (11.5-14.5); WBC 13.64 X 10*3/uL (4.50-10.00)
[2023-11-01 11:22] LABS: C Reactive Protein <0.30 mg/dL (0.00-0.80)
[2023-11-01 11:23] LABS: Rheumatoid Factor, Qnt <15 IU/mL (0-15); Uric Acid 4.4 mg/dL (2.9-7.7)
[2023-11-01 12:10] LABS: Erythrocyte Sedimentation Rate 4 mm/Hr (0-20)
[2023-11-01 16:22] LABS: DNA Double-Stranded Negative (Negative)
[2023-11-02 09:10] LABS: HLA B27 NEGATIVE
== END | disposition home or self-care (01) ==
LOC: LABWHC1 07:13
PROVIDERS: ATTEND Orthopaedic Surgery
DX: M25.50 Pain in unspecified joint (principal)
CPT/HCPCS: 36415; 84550; 85025; 85652; 86038; 86140; 86225; 86431; 86812

== ENCOUNTER → 2023-11-07 | Outpatient (CLI) | payer BC ==
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
== END | disposition home or self-care (01) ==
LOC: RADCTMAIN 14:54
PROVIDERS: ATTEND Orthopaedic Surgery
DX: M51.34 Other intervertebral disc degeneration, thoracic region (principal); M54.2 Cervicalgia
CPT/HCPCS: 72125; 72128

== ENCOUNTER 2024-01-31 10:53 | Day surgery (SDC) | payer BC ==
[~2024-01-31 10:53] MED LIST changes: +ATROPINE SULFATE 0.4 MG/ML 1 ML VIAL IM ONE; -DEXAMETHASONE SOD PHOSPHATE 4 MG/ML 1 ML VIAL IV ONE; -HYDROmorphone 0.5 MG/0.5 ML SYRINGE IVP PRN; +LIDOCAINE 1% (10MG/ML) FOR IV START INTRADERMA PRN; -MIDAZOLAM 2 MG/2 ML VIAL IV PRN; -ONDANSETRON 4 MG/2 ML VIAL IVP ONE; -Pre Op ABX Message 1 EACH MISC MISCELLANE ONE
[2024-01-31 11:12] VITALS: TEMP 98
[2024-01-31] MEDS: LACTATED RINGERS 1,000 ML IV SCH (11:22)
[2024-01-31 11:23] LABS: Glucose,Whole Blood 90 mg/dL (70-110)
[2024-01-31] MEDS: ONDANSETRON 4 MG/2 ML VIAL IVP PRN (11:23)
[2024-01-31] MEDS: IV FLUID CONTINUATION 1,000 ML IV ONE ×2 (11:26→11:33)
[2024-01-31] MEDS ORDERED: GLYCOPYRROLATE 0.2 MG/ML 2 ML VIAL ONE (12:00)
[2024-01-31] MEDS ORDERED: PROPOFOL 10 MG/ML 20 ML VIAL IV ONE (12:00)
[2024-01-31] MEDS ORDERED: fentaNYL (PF) 50 MCG/ML 2 ML AMP ONE (12:00)
[2024-01-31] MEDS ORDERED: LIDOCAINE 1% INJ 10MG/ML (20 ML MDV) ONE (12:00)
[2024-01-31] MEDS ORDERED: MIDAZOLAM 2 MG/2 ML VIAL ONE (12:00)
[2024-01-31] MEDS: LIDOCAINE 2% INJ 20 MG/ML INTRATRACH ONE (12:08)
[2024-01-31 12:38] VITALS: BP 109/65; PULSE 88; RESP 18
--- NOTE | 2024-01-31 19:04 | PCN ---
PROCEDURE NOTE PROCEDURES PERFORMED: Bronchoscopy, airway examination, therapeutic lavage, BAL, right middle lobe. PREOPERATIVE DIAGNOSIS: Recurrent bronchitis. POSTOPERATIVE DIAGNOSIS: Recurrent bronchitis. POLICE JUSTICE: Dr. Rose. ANESTHESIA PROVIDED: Monitored anesthesia care. There was informed consent and universal timeout. The patient's procedure took place in room #2. DESCRIPTION OF PROCEDURE: After the patient was adequately sedated, the bronchoscope was inserted through the left nostril. It passed through the left nasopharynx into the oropharynx. The hypopharynx was identified and topicalized. The hypopharyngeal structures all appeared normal including anterior commissure, true cords, false cords, arytenoids, piriform sinuses, right and left, vallecula. After topicalization, bronchoscope was pushed through the glottic opening into the trachea. There were some secretions noted in the distal trachea. They were purulent looking. They were suctioned without difficulty. There was no tracheal mass or tumor. Tracheal felicia was sharp. The right and left mainstem were topicalized. We did a thorough evaluation of both lungs, including the right upper lobe and its 3 segments, right middle lobe and its 2 segments, right lower lobe and its 5 segments, left upper lobe proper and its 2 segments, lingula and its 2 segments, the left lower lobe and its 4 segments. There was no definite mass or tumor. There was a fair amount of airway inflammation with erythema and hyperemia of the mucosa. There was some mucosal friability. There were thick secretions noted throughout. They were suctioned without difficulty. Next, the bronchoscope was wedged into the right middle lobe. We did a formal BAL. Thirty mL of turbid fluid was recovered. There was no immediate complication. The patient tolerated the procedure well and she will be recovered. I will speak to the patient's mother afterwards. MMODL / IJN: [id number] /
[2024-01-31 20:49] LABS: Appearance,BF Clear (Clear); RBC, Body Fluid 10 /UL (0-2000)
[2024-02-01 09:27] LABS: Nucleated Cells, Body Fluid 16 /UL
== END 2024-01-31 13:14 | disposition home or self-care (01) ==
LOC: ORWHC2ENDO 10:53
PROVIDERS: ATTEND Internal Medicine Critical Care Medicine
DX: J20.9 Acute bronchitis, unspecified (principal); I47.10 Supraventricular tachycardia, unspecified; C44.92 Squamous cell carcinoma of skin, unspecified; F17.200 Nicotine dependence, unspecified, uncomplicated; F32.A Depression, unspecified; F41.9 Anxiety disorder, unspecified; G90.A Postural orthostatic tachycardia syndrome [POTS]; M54.2 Cervicalgia; U07.1 COVID-19; Z88.1 Allergy status to other antibiotic agents; Z91.041 Radiographic dye allergy status; Z79.899 Other long term (current) drug therapy
CPT/HCPCS: 81025; 89050; 87070; 87205; 87116; 87102; 87206; 31624; J2250; J2405; J2003 ×2; J3010; J2704; J1596; 87496; 87498; 87502; 87529; 87634; 87635; 87798

== ENCOUNTER 2024-05-12 17:44 | Observation (INO) | payer BC ==
--- NOTE | 2024-05-12 17:57 | ED ---
Chest Pain HPI - General Chief Complaint: Chest Pain Stated Complaint: Chest Pain, Back Pain, SOB Time Seen by Provider: 05/12/24 17:52 Source: patient, RN notes reviewed, old records reviewed Mode of arrival: ambulatory Limitations: no limitations - History of Present Illness Initial Comments: This is a 43 female to the ER for evaluation, patient presents for chest pain today. Left-sided chest pain heaviness tightness exertional dyspnea. The symptoms have been ongoing for a while now. Patient was recently of inpatient hospitalization and return visit she did get admitted for chest pain had a stress test which she believes was normal they were concerned for possible blood clots or other cause of pain and possible need for heart catheterization. Patient is having still with exertional dyspnea left-sided chest pain MD Complaint: chest pain, other (Exertional dyspnea) -: days(s) Onset: during rest, during exertion Pain Location: substernal, left chest Pain Radiation: none Severity: moderate Severity scale (1-10): 6 Quality: tightness, heaviness Consistency: constant Improves With: nothing Worsens With: nothing Anginal Symptoms: dyspnea Other Symptoms: palpitations Treatments Prior to Arrival: none - Related Data Home Medications Medication Instructions Recorded Confirmed Escitalopram [Lexapro] 30 mg PO DAILY 01/28/24 05/12/24 ALPRAZolam [Xanax] 0.5 mg PO TID PRN 05/12/24 05/12/24 Budesonide/Formoterol Fumarate 2 puff INHALATION RT-BID PRN 05/12/24 05/12/24 [Symbicort 160-4.5 Mcg Inhaler] Ibuprofen [Motrin] 600 mg PO TID-W/MEALS PRN 05/12/24 05/12/24 traMADol HCL 50 mg PO Q6H PRN 05/12/24 05/12/24 traZODone HCL [Desyrel] 50 mg PO HS 05/12/24 05/12/24 Allergies Allergy/AdvReac Type Severity Reaction Status Date / Time Iodinated Contrast Media Allergy HIVES Verified 05/12/24 18:06 [Iodinated Contrast- Oral and IV Dye] shellfish derived [Shellfish] Allergy Rash/Hives Verified 05/12/24 18:06 vancomycin Allergy Rash/Hives Verified 05/12/24 18:06 Review of Systems ROS Statement: Those systems with pertinent positive or pertinent negative responses have been documented in the HPI. ROS Other: All systems not noted in ROS Statement are negative. EKG Findings - EKG Comments: EKG Findings:: EKG is sinus 94 MS 180 QRS 85 QTc 387 - EKG Results: EKG: interpreted by JAI Past Medical History Past Medical History: Cancer, Supraventricular Tachycardia (SVT) Additional Past Medical History / Comment(s): NECK PAIN, POTS, SKIN CANCER History of Any Multi-Drug Resistant Organisms: None Reported Past Surgical History: Cardiac Ablation, Heart Catheterization, Uterine Ablation Additional Past Surgical History / Comment(s): LAPAROSCOPIC SURG-OVARIAN CYST, D&C X2, Mohs surg Past Anesthesia/Blood Transfusion Reactions: Family History of Problems w/ Anesthesia, Motion Sickness, Postoperative Nausea & Vomiting (PONV) Additional Past Anesthesia/Blood Transfusion Reaction / Comment(s): MOTHER- PONV Past Psychological History: Anxiety, Depression Smoking Status: Current every day smoker - Past Family History Mother Family Medical History: Deep Vein Thrombosis (DVT) General Exam Limitations: no limitations General appearance: alert, in no apparent distress Head exam: Present: atraumatic, normocephalic, normal inspection Eye exam: Present: normal appearance, PERRL, EOMI. Absent: scleral icterus, conjunctival injection, periorbital swelling ENT exam: Present: normal exam, mucous membranes moist Neck exam: Present: normal inspection. Absent: tenderness, meningismus, lymphadenopathy Respiratory exam: Present: normal lung sounds bilaterally. Absent: respiratory distress, wheezes, rales, rhonchi, stridor Cardiovascular Exam: Present: regular rate, normal rhythm, normal heart sounds. Absent: systolic murmur, diastolic murmur, rubs, gallop, clicks GI/Abdominal exam: Present: soft, normal bowel sounds. Absent: distended, tenderness, guarding, rebound, rigid Extremities exam: Present: normal inspection, full ROM, normal capillary refill. Absent: tenderness, pedal edema, joint swelling, calf tenderness Back exam: Present: normal inspection Neurological exam: Present: alert, oriented X3, CN II-XII intact Psychiatric exam: Present: normal affect, normal mood Skin exam: Present: warm, dry, intact, normal color. Absent: rash Course Vital Signs 05/12/24 05/12/24 05/12/24 17:46 19:06 19:45 Temperature 98.3 F 98.1 F Pulse Rate 82 80 74 Respiratory 16 18 16 Rate Blood Pressure 134/79 122/78 122/78 O2 Sat by Pulse 98 97 98 Oximetry - Reevaluation(s) Reevaluation #1: 05/12/24 20:24 Medical records reviewed Reevaluation #2: 05/12/24 20:24 Patient still with left-sided chest pain here in the ER Reevaluation #3: 05/12/24 20:24 Patient informed of results questions answered Reevaluation #4: Was pt. sent in by a medical professional or institution (, [facility], TREATING ENGINEER, urgent care, hospital, or shelter...) When possible be specific @ -no Did you speak to anyone other than the patient for history (EMS, parent, family, police, friend...)? What history was obtained from this source @ -no Did you review nursing and triage notes (agree or disagree)? Why? @ -agree Are old charts reviewed (outside hosp., previous admission, EMS record, old EKG, old radiological studies, urgent care reports/EKG's, shelter records)? Report findings @ -yes Differential Diagnosis (chest pain, altered mental status, abdominal pain women, abdominal pain men, vaginal bleeding, weakness, fever, dyspnea, syncope, headache, dizziness, GI bleed, back pain, seizure, CVA, palpatations, mental health, musculoskeletal)? @ -prior EKG interpreted by me (3pts min.). @ -yes X-rays interpreted by me (1pt min.). @ -yes negative for acute disease CT interpreted by me (1pt min.). @ -no U/S interpreted by me (1pt. min.). @ -no What testing was considered but not performed or refused? (CT, X-rays, U/S, labs)? Why? @ -none What meds were considered but not given or refused? Why? @ -none Did you discuss the management of the patient with other professionals (professionals i.e. [facility] Mistry, TREATING ENGINEER, lab, RT, psych nurse, family welfare social work professor, newspaper publisher, teacher, staff mine warfare officer, behavioral health case manager)? Give summary @ -no Was smoking cessation discussed for >3mins.? @ -no Was critical care preformed (if so, how long)? @ -no Were there social determinants of health that impacted care today? How? (Homelessness, low income, unemployed, alcoholism, drug addiction, transportation, low edu. Level, literacy, decrease access to med. care, long term, rehab)? @ -none Was there de-escalation of care discussed even if they declined (Discuss DNR or withdrawal of care, Hospice)? DNR status @ -no What co-morbidities impacted this encounter? (DM, HTN, Smoking, COPD, CAD, Cance r, CVA, ARF, Chemo, Hep., AIDS, mental health diagnosis, sleep apnea, morbid obesity)? @ -none Was patient admitted / discharged? Hospital course, mention meds given and route, prescriptions, significant lab abnormalities, going to OR and other pertinent info. @ - Undiagnosed new problem with uncertain prognosis? @ -no Drug Therapy requiring intensive monitoring for toxicity (Heparin, Nitro, I nsulin, Cardizem)? @ -no Were any procedures done? @ -no Diagnosis/symptom? @ - Acute, or Chronic, or Acute on Chronic? @ -Acute Uncomplicated (without systemic symptoms) or Complicated (systemic symptoms)? @ -Complicated Side effects of treatment? @ -no Exacerbation, Progression, or Severe Exacerbation? @ -exacerbation Poses a threat to life or bodily function? How? (Chest pain, [place], [place], pneumonia, PE, COPD, DKA, ARF, appy, cholecystitis, CVA, Diverticulitis, Homicidal, Suicidal, threat to staff... and all critical care pts) @ -yes Reevaluation #5: Differential Chest Pain: Stable Angina, Unstable Angina, STEMI, NSTEMI Aortic Dissection, Pneumothorax, Musculoskeletal, Esophageal Spasm GERD, Cholecystitis, Pancreatitis, Zoster, this is not meant to be an all-inclusive list. - Consultations Consultation #1: Spoke with [facility] who agrees to admit this patient Chest Pain MDM - MDM 43 female to ER for chest pain. Recent x-ray and stress test normal, persistent left-sided chest pain with exertional dyspnea, possible pericarditis, patient will admit for cardiac observation Disposition Clinical Impression: Chest pain, Atypical chest pain Disposition: ADMITTED IP TO THIS HOSP Condition: Fair Is patient prescribed a controlled substance at d/c from ED?: No Referrals: Lul Palmer MD [Primary Care Provider] - 1-2 days Time of Disposition: 20:30
[2024-05-12] MEDS: KETOROLAC 15 MG/ML 1 ML VIAL IVP STA (19:01)
[2024-05-12] MEDS: SODIUM CHLORIDE 0.9% 1,000 ML IV STA (19:01)
[2024-05-12 19:02] LABS: Basophils # (A) 0.05 10*3/uL (0.00-0.10); Basophils % (A) 0.4 %; Eosinophils # (A) 0.17 10*3/uL (0.04-0.35); Eosinophils % (A) 1.5 %; HGB 15.2 g/dL (12.0-15.0); Lymphocytes # (A) 2.22 10*3/uL (0.90-5.00); MCH 32.7 pg (27.0-32.0); MCHC 34.5 g/dL (32.0-37.0); MCV 94.6 fL (80.0-97.0); Mean Platelet Volume 9.4 fL (9.5-12.2); Monocytes # (A) 0.73 10*3/uL (0.20-1.00); Monocytes % (A) 6.3 %; Neutrophils # (A) 8.47 10*3/uL (1.80-7.70); Neutrophils % (A) 72.5 %; Platelet Count 258 10*3/uL (140-440); RBC 4.65 10*6/uL (4.10-5.20); RDW 13.4 % (11.5-14.5); WBC 11.68 10*3/uL (4.50-10.00)
[2024-05-12 19:12] LABS: ALT 15 U/L (4-34); AST 18 U/L (14-36); African American GFR (CKD) >90 (>60 ml/min/1.73 sqM); Albumin 4.7 g/dL (3.5-5.0); Alkaline Phosphatase 54 U/L (38-126); Anion Gap 10 mmol/L; Blood Urea Nitrogen 8 mg/dL (7-17); Carbon Dioxide 24 mmol/L (22-30); Chloride 103 mmol/L (98-107); Glucose 90 mg/dL (74-99); Lipase 60 U/L (23-300); Magnesium 2.2 mg/dL (1.6-2.3); Non-African American GFR(CKD) >90 (>60 ml/min/1.73 sqM); Potassium 3.8 mmol/L (3.5-5.1); Sodium 137 mmol/L (137-145); Total Bilirubin 0.5 mg/dL (0.2-1.3); Total Protein 7.5 g/dL (6.3-8.2)
[2024-05-12 19:21] LABS: NT-Pro-B-Type Natriuretic Pept <20 pg/mL
--- NOTE | 2024-05-12 19:35 | CT ---
EXAMINATION TYPE: CT chest wo con DATE OF EXAM: 05/12/2024 COMPARISON: Chest CT October 21, 2021 CLINICAL INDICATION: Female, 43 years old with history of cp, CP. TECHNIQUE: CT scan of the thorax is performed without IV contrast. CT DLP: 272.7 mGycm. Automated Exposure Control for Dose Reduction was Utilized. FINDINGS: LUNGS: There is mild biapical pleural/parenchymal scarring redemonstrated. Remainder of the lungs are clear. No pleural effusion or pneumothorax seen bilaterally. HEART: Size within normal limits. No significant coronary artery calcifications. MEDIASTINUM: Lack of IV contrast is noted to limit evaluation for mediastinal and especially hilar ad enopathy. There are no definitive greater than 1 cm mediastinal lymph nodes. No pericardial effusio n is seen. OTHER: No additional significant abnormality is seen. IMPRESSION: No acute pulmonary process. [facility], , 05/12/2024 7:32 PM
[2024-05-12 19:38] LABS: INR 0.9 (<1.2); Partial Thromboplastin Time 25.3 sec (22.0-30.0); Prothrombin Time 10.3 sec (10.0-12.5)
[2024-05-12] MEDS ORDERED: NALOXONE 0.4 MG/ML 1 ML VIAL IV PRN (20:22)
[2024-05-12] MEDS ORDERED: KETOROLAC 15 MG/ML 1 ML VIAL IVP PRN (20:22)
[2024-05-12] MEDS ORDERED: ONDANSETRON 4 MG/2 ML VIAL IVP PRN (20:22)
[2024-05-12] MEDS: MORPHINE SULFATE 4 MG/ML SYRINGE IV PRN (21:31)
[2024-05-12] MEDS: traZODone HCL 50 MG TAB PO SCH (23:23)
[2024-05-13 07:35] LABS: Basophils # (A) 0.04 10*3/uL (0.00-0.10); Basophils % (A) 0.5 %; Eosinophils # (A) 0.15 10*3/uL (0.04-0.35); Eosinophils % (A) 1.7 %; HCT 39.3 % (37.2-46.3); HGB 13.4 g/dL (12.0-15.0); Lymphocytes # (A) 2.22 10*3/uL (0.90-5.00); Lymphocytes % (A) 25.3 %; MCH 33.5 pg (27.0-32.0); MCHC 34.1 g/dL (32.0-37.0); MCV 98.3 fL (80.0-97.0); Mean Platelet Volume 9.5 fL (9.5-12.2); Monocytes # (A) 0.56 10*3/uL (0.20-1.00); Monocytes % (A) 6.4 %; Neutrophils # (A) 5.77 10*3/uL (1.80-7.70); Neutrophils % (A) 65.6 %; Platelet Count 220 10*3/uL (140-440); RDW 13.6 % (11.5-14.5); WBC 8.78 10*3/uL (4.50-10.00)
[2024-05-13 07:57] LABS: ALT 11 U/L (4-34); AST 15 U/L (14-36); African American GFR (CKD) >90 (>60 ml/min/1.73 sqM); Albumin 3.5 g/dL (3.5-5.0); Alkaline Phosphatase 52 U/L (38-126); Anion Gap 5 mmol/L; Blood Urea Nitrogen 8 mg/dL (7-17); Calcium 8.8 mg/dL (8.4-10.2); Carbon Dioxide 24 mmol/L (22-30); Chloride 107 mmol/L (98-107); Glucose 90 mg/dL (74-99); Magnesium 2.2 mg/dL (1.6-2.3); Non-African American GFR(CKD) >90 (>60 ml/min/1.73 sqM); Phosphorus 4.1 mg/dL (2.5-4.5); Potassium 4.2 mmol/L (3.5-5.1); Sodium 136 mmol/L (137-145); Total Bilirubin 0.5 mg/dL (0.2-1.3); Total Protein 5.9 g/dL (6.3-8.2)
[2024-05-13] MEDS: ESCITALOPRAM 10 MG TAB PO SCH (08:00)
--- NOTE | 2024-05-13 10:56 | CA ---
Transthoracic Echo Report Name: Pauline Sanchez Age: 43 Gender: F : 1980 Exam Date: 05/13/2024 08:12 Exam Location: [facility] Ht (in): 65 Wt (lb): 150 Ordering Physician: Jose Miguel Borden MD Attending/Referring Phys: [id number], Suha Crane Rigger Aimee Paulino RDCS Procedure CPT: Indications: Chest Pain Cardiac Hx: Technical Quality: Good Contrast 1: Total Dose (mL): Contrast 2: Total Dose (mL): MEASUREMENTS (Male / Female) Normal Values 2D ECHO LV Diastolic Diameter PLAX 4.7 cm 4.2 - 5.9 / 3.9 - 5.3 cm LV Systolic Diameter PLAX 3.1 cm IVS Diastolic Thickness 0.6 cm 0.6 - 1.0 / 0.6 - 0.9 cm LVPW Diastolic Thickness 0.8 cm 0.6 - 1.0 / 0.6 - 0.9 cm LV Relative Wall Thickness 0.3 LVOT Diameter 1.9 cm LV Diastolic Volume MOD BP 83.9 cm??? 67 - 155 / 56 - 104 cm??? LV Systolic Volume MOD BP 31.5 cm??? 22 - 58 / 19 - 49 cm??? LV Ejection Fraction MOD BP 62.5 % >= 55 % LV Cardiac Index MOD BP 2066.9 cm???/min???m??? LV Diastolic Volume MOD 4C 89.3 cm??? LV Systolic Volume MOD 4C 34.8 cm??? LV Ejection Fraction MOD 4C 61.0 % LV Cardiac Index MOD 4C 2147.6 cm???/min???m??? LV Diastolic Length 4C 8.0 cm LV Systolic Length 4C 6.8 cm LV Diastolic Volume MOD 2C 77.4 cm??? LV Systolic Volume MOD 2C 28.1 cm??? LV Ejection Fraction MOD 2C 63.6 % LV Cardiac Index MOD 2C 1939.8 cm???/min???m??? LV Diastolic Length 2C 7.9 cm LV Systolic Length 2C 6.7 cm LA Volume 23.5 cm??? 18 - 58 / 22 - 52 cm??? LA Volume Index 13.2 cm???/m??? 16 - 28 cm???/m??? DOPPLER AV Peak Velocity 120.8 cm/s AV Peak Gradient 5.8 mmHg AV Mean Velocity 83.4 cm/s AV Mean Gradient 3.1 mmHg AV Velocity Time Integral 27.4 cm LVOT Peak Velocity 89.2 cm/s LVOT Peak Gradient 3.2 mmHg LVOT Velocity Time Integral 19.3 cm LVOT Stroke Volume 52.6 cm??? LVOT Stroke Volume Index 30.1 ml/m??? LVOT Cardiac Index 2072.4 cm???/min???m??? AV Area Cont Eq vti 1.9 cm??? AV Area Cont Eq pk 2.0 cm??? MV Area PHT 4.5 cm??? Mitral E Point Velocity 54.5 cm/s Mitral A Point Velocity 53.5 cm/s Mitral E to A Ratio 1.0 MV Deceleration Time 168.5 ms PV Peak Velocity 82.5 cm/s PV Peak Gradient 2.7 mmHg FINDINGS Left Ventricle Left ventricular ejection fraction is estimated at 55-60 %. Left ventricular cavity size normal. Left ventricular wall thickness normal. No obvious regional wall motion abnormalities. Right Ventricle Normal right ventricular size and function. Right ventricular systolic pressure within normal limits. Right Atrium Normal right atrial size. Left Atrium Normal left atrial size. Mitral Valve Structurally normal mitral valve. No evidence for mitral valve prolapse. No mitral stenosis. Mild to moderate Aortic Valve Trileaflet aortic valve. No aortic valve stenosis or regurgitation. Tricuspid Valve Structurally normal tricuspid valve. No tricuspid stenosis. Trace tricuspid regurgitation. Pulmonic Valve Structurally normal pulmonic valve. No pulmonic stenosis. No pulmonic regurgitation. Pericardium No pericardial effusion. Mild thickening of the pericardium. Aorta Normal size aortic root and proximal ascending aorta. CONCLUSIONS Normal LV systolic function Mild to moderate MR No pericardial effusion Normal aortic root and proximal ascending aorta Previewed by: Dr. Henrique Pina MD (Electronically Signed) Final Date: 13 May 2024 10:55
[2024-05-13 11:39] VITALS: RESP 16
[2024-05-13] MEDS: TRIMETHOBENZAMIDE 100 MG/ML 2 ML VIAL IM STA (12:55)
--- NOTE | 2024-05-13 14:56 | P.CRDCN ---
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 She was last seen by her light rail transit operator 3 to 4 years ago. Patient states that she developed left-sided chest pain on the left side of the sternal border. She states it was a stabbing and shooting to her upper back area along with shortness of breath. She states it has been going on for 1 week. She denies any wheezing no cough. She is normally very active. She denies any fever. No blood in her stools or urine. No history of seizures or strokes. She has had some nausea all week. No history of hypertension. No dizziness. She states her pain is sometimes worse with deep breathing but not consistently. She is a smoker of half a pack of cigarettes per day and also drinks 1 to 2 cups of coffee per day. She denies alcohol use. She states the pain was so bad that after 2 hours of work she was told to leave. Blood pressure 86/49, pulse ox 95%, heart rate 74. Stress testing done at [facility] was reviewed by Dr. Champion and study was normal. -EKG: Sinus rhythm with no acute ST-T wave changes - CT of the chest showed no acute pulmonary process. -Laboratory studies: WBC initially 11.6 now 8.7, hemoglobin 13.4. Sodium 136, potassium 4.2, creatinine 0.64. Troponin negative x 3. No ongoing proBNP less than 20. -Home cardiac medications: None - Echocardiogram reveals normal LV systolic function. Mild to moderate MR. No pericardial effusion. Normal aortic root and proximal ascending aorta. Review Of Systems: At the time of my exam: CONSTITUTIONAL: Denies fever or chills. HEENT: Denies blurred vision, vision changes, or eye pain. Denies hemoptysis CARDIOVASCULAR: Reports chest pain. Denies orthopnea. Denies PND. Denies palpita tions RESPIRATORY: Denies shortness of breath. GASTROINTESTINAL: Denies abdominal pain. Denies nausea or vomiting. HEMATOLOGIC: Denies bleeding disorders. GENITOURINARY: Denies any blood in urine. SKIN: Denies puritis. Denies rash. Physical examination: Gen: This is a 43-year-old female in no acute distress VS: reviewed HEENT: Head is atraumatic, normocephalic. Pupils equal, round. Sclerae is anicteric. NECK: Supple. No JVD. LUNGS: Clear to auscultation. No wheezes or rhonchi. No intercostal retractions. HEART: Regular rate and rhythm. No murmur. ABDOMEN: Soft No tenderness. EXTREMITIES: No pedal edema. No calf tenderness. NEUROLOGICAL: Patient is awake, alert and oriented x3. Assessment: Atypical chest pain, acute coronary syndrome ruled out History of POTS and SVT status post ablation Tobacco use and dependence Plan: No further cardiac workup at this time Patient is cleared for discharge and may follow-up with her primary light rail transit operator in 1 to 2 weeks. Thank you kindly for this consultation. Nurse practitioner note has been reviewed, I agree with documented findings and plan of care. Patient was seen and examined. Past Medical History Past Medical History: Cancer, Supraventricular Tachycardia (SVT) Additional Past Medical History / Comment(s): NECK PAIN, POTS, SKIN CANCER History of Any Multi-Drug Resistant Organisms: None Reported Past Surgical History: Cardiac Ablation, Heart Catheterization, Uterine Ablation Additional Past Surgical History / Comment(s): LAPAROSCOPIC SURG-OVARIAN CYST, D&C X2, Mohs surg, Bronchoscophy Past Anesthesia/Blood Transfusion Reactions: Family History of Problems w/ Anesthesia, Motion Sickness, Postoperative Nausea & Vomiting (PONV) Additional Past Anesthesia/Blood Transfusion Reaction / Comment(s): MOTHER- PONV Past Psychological History: Anxiety, Depression Smoking Status: Current every day smoker Past Alcohol Use History: None Reported Additional Past Alcohol Use History / Comment(s): STARTED SMOKING AT AGE 17 SMOKES 1/2-1 PPD Past Drug Use History: None Reported - Past Family History Mother Family Medical History: Deep Vein Thrombosis (DVT) Medications and Allergies Home Medications Medication Instructions Recorded Confirmed Type Escitalopram [Lexapro] 30 mg PO DAILY 01/28/24 05/12/24 History ALPRAZolam [Xanax] 0.5 mg PO TID PRN 05/12/24 05/12/24 History Budesonide/Formoterol Fumarate 2 puff INHALATION RT-BID PRN 05/12/24 05/12/24 History [Symbicort 160-4.5 Mcg Inhaler] Ibuprofen [Motrin] 600 mg PO TID-W/MEALS PRN 05/12/24 05/12/24 History traMADol HCL 50 mg PO Q6H PRN 05/12/24 05/12/24 History traZODone HCL [Desyrel] 50 mg PO HS 05/12/24 05/12/24 History Allergies Allergy/AdvReac Type Severity Reaction Status Date / Time Iodinated Contrast Media Allergy HIVES Verified 05/12/24 18:06 [Iodinated Contrast- Oral and IV Dye] shellfish derived [Shellfish] Allergy Rash/Hives Verified 05/12/24 18:06 vancomycin Allergy Rash/Hives Verified 05/12/24 18:06 Physical Exam Vitals: Vital Signs Temp Pulse Pulse Resp BP BP Pulse Ox 05/13/24 04:56 97.7 F 74 17 86/49 95 05/12/24 23:29 97.6 F 97 16 98/63 97 05/12/24 21:54 97.8 F 80 17 119/78 97 05/12/24 21:27 98 F 76 16 114/71 100 05/12/24 19:45 74 16 122/78 98 05/12/24 19:06 98.1 F 80 18 122/78 97 05/12/24 17:46 98.3 F 82 16 134/79 98 Intake and Output 05/12/24 05/13/24 05/13/24 22:59 06:59 14:59 Output Total 200 Balance -200 Output: Urine 200 Other: Voiding Method Toilet # Voids 1 Weight 68.039 kg 67 kg Results 05/13/24 07:04 05/13/24 07:04 Cardiac Enzymes 05/12/24 05/12/24 05/12/24 Range/Units 18:45 18:45 21:26 AST 18 (14-36) U/L Troponin I <0.012 <0.012 (0.000-0.034) ng/mL 05/13/24 05/13/24 Range/Units 01:04 07:04 AST 15 (14-36) U/L Troponin I <0.012 (0.000-0.034) ng/mL Coagulation 05/12/24 Range/Units 18:45 PT 10.3 (10.0-12.5) sec APTT 25.3 (22.0-30.0) sec CBC 05/12/24 05/13/24 Range/Units 18:45 07:04 WBC 11.68 H 8.78 (4.50-10.00) 10*3/uL RBC 4.65 4.00 L (4.10-5.20) 10*6/uL Hgb 15.2 H 13.4 (12.0-15.0) g/dL Hct 44.0 39.3 (37.2-46.3) % Plt Count 258 220 (140-440) 10*3/uL Comprehensive Metabolic Panel 05/12/24 05/13/24 Range/Units 18:45 07:04 Sodium 137 136 L (137-145) mmol/L Potassium 3.8 4.2 (3.5-5.1) mmol/L Chloride 103 107 (98-107) mmol/L Carbon Dioxide 24 24 (22-30) mmol/L BUN 8 8 (7-17) mg/dL Creatinine 0.71 0.64 (0.52-1.04) mg/dL Glucose 90 90 (74-99) mg/dL Calcium 10.0 8.8 (8.4-10.2) mg/dL AST 18 15 (14-36) U/L ALT 15 11 (4-34) U/L Alkaline Phosphatase 54 52 (38-126) U/L Total Protein 7.5 5.9 L (6.3-8.2) g/dL Albumin 4.7 3.5 (3.5-5.0) g/dL Current Medications Generic Name Dose Route Start Last Admin Trade Name Freq PRN Reason Stop Dose Admin Escitalopram Oxalate 30 mg 05/13/24 09:00 05/13/24 08:00 Escitalopram 10 Mg Tab PO 30 mg DAILY MIREILLE Administration Ketorolac Tromethamine 15 mg 05/12/24 20:22 Ketorolac 15 Mg/Ml 1 Ml Vial IVP 05/15/24 20:23 Q6HR PRN Moderate Pain (Scale 4 to 6) Morphine Sulfate 4 mg 05/12/24 20:22 05/13/24 07:54 Morphine Sulfate 4 Mg/Ml Syringe IV 4 mg Q4HR PRN Administration Severe Pain (Scale 7 to 10) Naloxone HCl 0.2 mg 05/12/24 20:22 Naloxone 0.4 Mg/Ml 1 Ml Vial IV Q2M PRN Opioid Reversal Trazodone HCl 50 mg 05/12/24 22:30 05/12/24 23:23 Trazodone Hcl 50 Mg Tab PO 50 mg HS MIREILLE Administration Intake and Output 05/12/24 05/13/24 05/13/24 22:59 06:59 14:59 Output Total 200 Balance -200 Output: Urine 200 Other: Voiding Method Toilet # Voids 1 Weight 68.039 kg 67 kg 05/13/24 07:04 05/13/24 07:04
--- NOTE | 2024-05-13 16:23 | P.CNPUL ---
History of Present Illness Consult date: 05/13/24 Requesting physician: Jose Miguel Borden Reason for consult: chest pain Chief complaint: Chest pain History of present illness: This is a very pleasant 43-year-old female patient with a known history of chronic bronchitis, chronic tobacco dependence, previous unremarkable bronchoscopy in January 2024, POTS, SVT with previous ablation, previous COVID infection in 2021, anxiety/depression. She was hospitalized last week and [facility] and had a normal stress test. They wanted to do a CT angiogram but she declined due to iodine allergy. She presented here to the emergency room yesterday with complaints of midsternal chest pain radiating through to her back. EKG reveals sinus rhythm with no significant ST or T wave abnormalities. CT scan of the chest without contrast revealed no acute pulmonary process. Mild biapical pleural scarring redemonstrated. Echocardiogram revealed normal left ventricular systolic function. Mild to moderate mitral regurgitation. White count 8.7. Hemoglobin 13.4. Platelets 220. D-dimer negative at 0.25. Sodium 136. Potassium 4.2. Bicarb 24. BUN 8. Creatinine 0.64. Glucose 90. Troponins were negative x 3. Lipase 60. AST 15. ALT 11. She is seen today in consultation on the selective care unit. She is awake and alert in no acute distress. Sitting up at the bedside. Still having intermittent episodes of midsternal chest discomfort. She is maintaining O2 saturations in the mid to upper 90s on room air. She has been afebrile. Hemodynamically stable. Review of Systems REVIEW OF SYSTEMS: CONSTITUTIONAL: Denies any recent significant weight loss or weight gain. EYES: Denies change in vision. EARS, NOSE, MOUTH, THROAT: Denies headaches, denies sore throat. CARDIOVASCULAR: Positive for chest pain, no palpitations or syncopal episodes. RESPIRATORY: Denies shortness of breath, cough, congestion or hemoptysis. GASTROINTESTINAL: Denies change in appetite, denies abdominal pain GENITOURINARY: Denies hematuria, denies infections. MUSKULOSKELETAL: Denies pain, denies swelling. INTEGUMENTARY: Denies rash, denies eczema. NEUROLOGICAL: Denies recent memory loss, no recent seizure activity. PSYCHIATRIC: Denies anxiety, denies depression. HEMATOLOGIC/LYMPHATIC: Denies anemia, denies enlarged lymph nodes. Past Medical History Past Medical History: Cancer, Supraventricular Tachycardia (SVT) Additional Past Medical History / Comment(s): NECK PAIN, POTS, SKIN CANCER History of Any Multi-Drug Resistant Organisms: None Reported Past Surgical History: Cardiac Ablation, Heart Catheterization, Uterine Ablation Additional Past Surgical History / Comment(s): LAPAROSCOPIC SURG-OVARIAN CYST, D&C X2, Mohs surg, Bronchoscophy Past Anesthesia/Blood Transfusion Reactions: Family History of Problems w/ Anesthesia, Motion Sickness, Postoperative Nausea & Vomiting (PONV) Additional Past Anesthesia/Blood Transfusion Reaction / Comment(s): MOTHER- PONV Past Psychological History: Anxiety, Depression Smoking Status: Current every day smoker Past Alcohol Use History: None Reported Additional Past Alcohol Use History / Comment(s): STARTED SMOKING AT AGE 17 SMOKES 1/2-1 PPD Past Drug Use History: None Reported - Past Family History Mother Family Medical History: Deep Vein Thrombosis (DVT) Medications and Allergies Home Medications Medication Instructions Recorded Confirmed Type Escitalopram [Lexapro] 30 mg PO DAILY 01/28/24 05/12/24 History ALPRAZolam [Xanax] 0.5 mg PO TID PRN 05/12/24 05/12/24 History Budesonide/Formoterol Fumarate 2 puff INHALATION RT-BID PRN 05/12/24 05/12/24 History [Symbicort 160-4.5 Mcg Inhaler] Ibuprofen [Motrin] 600 mg PO TID-W/MEALS PRN 05/12/24 05/12/24 History traMADol HCL 50 mg PO Q6H PRN 05/12/24 05/12/24 History traZODone HCL [Desyrel] 50 mg PO HS 05/12/24 05/12/24 History Allergies Allergy/AdvReac Type Severity Reaction Status Date / Time Iodinated Contrast Media Allergy HIVES Verified 05/12/24 18:06 [Iodinated Contrast- Oral and IV Dye] shellfish derived [Shellfish] Allergy Rash/Hives Verified 05/12/24 18:06 vancomycin Allergy Rash/Hives Verified 05/12/24 18:06 Physical Exam Vitals: Vital Signs Temp Pulse Pulse Resp BP BP Pulse Ox 05/13/24 11:20 97.9 F 81 16 96/62 97 05/13/24 08:00 75 16 05/13/24 07:55 98.1 F 75 16 100/59 05/13/24 04:56 97.7 F 74 17 86/49 95 05/12/24 23:29 97.6 F 97 16 98/63 97 05/12/24 21:54 97.8 F 80 17 119/78 97 05/12/24 21:27 98 F 76 16 114/71 100 05/12/24 19:45 74 16 122/78 98 05/12/24 19:06 98.1 F 80 18 122/78 97 05/12/24 17:46 98.3 F 82 16 134/79 98 Intake and Output 05/13/24 05/13/24 05/13/24 06:59 14:59 22:59 Output Total 200 Balance -200 Output: Urine 200 Other: Voiding Method Toilet Toilet # Voids 1 1 Weight 67 kg GENERAL EXAM: Alert, very pleasant 43-year-old female, on room air, comfortable in no apparent distress. HEAD: Normocephalic. EYES: Normal reaction of pupils, equal size. NOSE: Clear with pink turbinates. THROAT: No erythema or exudates. NECK: No masses, no JVD. CHEST: No chest wall deformity. LUNGS: Equal air entry with no crackles, wheeze, rhonchi or dullness. CVS: S1 and S2 normal with no audible murmur, regular rhythm. ABDOMEN: No hepatosplenomegaly, normal bowel sounds, no guarding or rigidity. SPINE: No scoliosis or deformity SKIN: No rashes CENTRAL NERVOUS SYSTEM: No focal deficits, tone is normal in all 4 extremities. EXTREMITIES: There is no peripheral edema. No clubbing, no cyanosis. Peripheral pulses are intact. Results - Laboratory Findings CBC and BMP: 05/13/24 07:04 05/13/24 07:04 PT/INR, D-dimer PT 10.3 sec (10.0-12.5) 05/12/24 18:45 INR 0.9 (<1.2) 05/12/24 18:45 D-Dimer 0.25 mg/L FEU (<0.60) 05/12/24 18:45 Abnormal lab findings: Abnormal Labs 05/12/24 05/13/24 05/13/24 18:45 07:04 07:04 WBC 11.68 H RBC 4.00 L Hgb 15.2 H MCV 98.3 H MCH 32.7 H 33.5 H MPV 9.4 L Neutrophils # 8.47 H Sodium 136 L Total Protein 5.9 L - Diagnostic Findings CT scan - chest: image reviewed Assessment and Plan Assessment: Atypical chest pain, acute coronary syndrome ruled out, CT scan of the chest without contrast revealed no acute pulmonary process. D-dimer negative. Unremarkable bronchoscopy in January 2024. Previous pulmonary function testing within normal limits History of chronic bronchitis Chronic tobacco dependence History of anxiety/depression History of POTS History of SVT with previous ablation History of COVID infection in 2021 Plan: The patient was seen and evaluated Imaging, labs and medications reviewed Troponins negative x 3 Echocardiogram reviewed D-dimer negative Stable and on room air oxygen Educated regarding smoking cessation Cleared for discharge from the pulmonary standpoint Follow-up with Dr. Rose in our office in 1 week I have personally seen and examined the patient, performed the documentation and the assessment and plan as written. Number of minutes spent on the visit: 20 Dictation was produced using [employer] dictation software. Please excuse any grammatical, word or spelling errors. Time with Patient: Greater than 30
[2024-05-13 16:41] VITALS: BP 110/73; PULSE 73; TEMP 98
--- NOTE | 2024-05-13 22:44 | P.HPIM ---
History of Present Illness Please consider this note as combined H&P and discharge summary Diagnosis: Chest pain, atypical. Improved. Nicotine dependence History of SVT Hospital course: This is a pleasant 43 years old female who presents because of chest pain about 1 week duration central that comes and go Patient chest pain was sharp radiating to the upper back associated with little shortness of breath and nausea. Patient states she was not eating and required some antinausea medication like Tigan after that she tolerated breakfast and lunch very well. Her chest pain is about 5-6/10 in severity. Increased by movement with no relieving factors No other GI/ symptom. No headache dizziness weakness numbness Patient smokes about half pack per day and she was counseled to quit and she agrees but she declines nicotine patch. Patient evaluated by machine maintenance. Patient has recent negative workup. Patient was cleared for discharge by machine maintenance D-dimer also was checked was -0.25. CT of the chest without contrast showing no acute process. Labs unremarkable except for WBCs 11.6. Hemoglobin 15.2. Patient also requested to be seen by locomotive pipe fitter as she will follow-up with Dr. Lopez as an outpatient however patient with no currently any dyspnea or wheezing. Patient evaluated by pulmonary service who also cleared her for discharge. Patient agrees to go home and follow-up with her doctors as an outpatient. Patient denies any other new complaint. Patient was cleared for discharge by machine maintenance and locomotive pipe fitter as above. Problems and management plan were discussed with the patient and he verbalized understanding and acceptance Patient was found stable and can be discharged home in guarded prognosis however he needs follow-up as an outpatient. Patient was instructed to follow up with PCP Dr. Oneil within one week and patient agrees Patient was instructed to follow-up with locomotive pipe fitter Dr. Lopez in 1 [address] machine maintenance Dr. Champion in 1 to 2 weeks and she agrees Patient also wants to check her gallbladder so it was referred to Dr. Alcala as an outpatient. However patient with no RUQ pain or tenderness. Tolerates that well. Physical exam Gen: patient is a AAOx3, no distress CVS: S1-S2, RRR, no murmur Lungs: B/L CTA, no wheezing Abdomen: soft, no distention, no tenderness, positive bowel sounds Extremity: no leg edema or induration Time spent more than 35 minutes Past Medical History Past Medical History: Cancer, Supraventricular Tachycardia (SVT) Additional Past Medical History / Comment(s): NECK PAIN, POTS, SKIN CANCER History of Any Multi-Drug Resistant Organisms: None Reported Past Surgical History: Cardiac Ablation, Heart Catheterization, Uterine Ablation Additional Past Surgical History / Comment(s): LAPAROSCOPIC SURG-OVARIAN CYST, D&C X2, Mohs surg, Bronchoscophy Past Anesthesia/Blood Transfusion Reactions: Family History of Problems w/ Anesthesia, Motion Sickness, Postoperative Nausea & Vomiting (PONV) Additional Past Anesthesia/Blood Transfusion Reaction / Comment(s): MOTHER- PONV Past Psychological History: Anxiety, Depression Smoking Status: Current every day smoker Past Alcohol Use History: None Reported Additional Past Alcohol Use History / Comment(s): STARTED SMOKING AT AGE 17 SMOKES 1/2-1 PPD Past Drug Use History: None Reported - Past Family History Mother Family Medical History: Deep Vein Thrombosis (DVT) Medications and Allergies Home Medications Medication Instructions Recorded Confirmed Type Escitalopram [Lexapro] 30 mg PO DAILY 01/28/24 05/12/24 History ALPRAZolam [Xanax] 0.5 mg PO TID PRN 05/12/24 05/12/24 History Budesonide/Formoterol Fumarate 2 puff INHALATION RT-BID PRN 05/12/24 05/12/24 History [Symbicort 160-4.5 Mcg Inhaler] traMADol HCL 50 mg PO Q6H PRN 05/12/24 05/12/24 History traZODone HCL [Desyrel] 50 mg PO HS 05/12/24 05/12/24 History Ibuprofen [Motrin] 600 mg PO TID-W/MEALS PRN 3 Days #0 05/13/24 05/12/24 Rx Allergies Allergy/AdvReac Type Severity Reaction Status Date / Time Iodinated Contrast Media Allergy HIVES Verified 05/12/24 18:06 [Iodinated Contrast- Oral and IV Dye] shellfish derived [Shellfish] Allergy Rash/Hives Verified 05/12/24 18:06 vancomycin Allergy Rash/Hives Verified 05/12/24 18:06 Physical Exam Vitals: Vital Signs Temp Pulse Pulse Resp BP BP Pulse Ox 05/13/24 16:40 98 F 73 16 110/73 95 05/13/24 11:20 97.9 F 81 16 96/62 97 05/13/24 08:00 75 16 05/13/24 07:55 98.1 F 75 16 100/59 05/13/24 04:56 97.7 F 74 17 86/49 95 05/12/24 23:29 97.6 F 97 16 98/63 97 05/12/24 21:54 97.8 F 80 17 119/78 97 05/12/24 21:27 98 F 76 16 114/71 100 05/12/24 19:45 74 16 122/78 98 05/12/24 19:06 98.1 F 80 18 122/78 97 05/12/24 17:46 98.3 F 82 16 134/79 98 Intake and Output 05/13/24 05/13/24 05/13/24 06:59 14:59 22:59 Output Total 200 Balance -200 Output: Urine 200 Other: Voiding Method Toilet Toilet # Voids 1 1 Weight 67 kg Results CBC & Chem 7: 05/13/24 07:04 05/13/24 07:04 Labs: Abnormal Lab Results - Last 24 Hours (Table) 05/12/24 05/13/24 05/13/24 Range/Units 18:45 07:04 07:04 WBC 11.68 H (4.50-10.00) 10*3/uL RBC 4.00 L (4.10-5.20) 10*6/uL Hgb 15.2 H (12.0-15.0) g/dL MCV 98.3 H (80.0-97.0) fL MCH 32.7 H 33.5 H (27.0-32.0) pg MPV 9.4 L (9.5-12.2) fL Neutrophils # 8.47 H (1.80-7.70) 10*3/uL Sodium 136 L (137-145) mmol/L Total Protein 5.9 L (6.3-8.2) g/dL Thrombosis Risk Factor Assmnt - Choose All That Apply Any of the Below Risk Factors Present?: Yes Each Factor Represents 1 point: Age 41-60 years Other Risk Factors: No Other congenital or acquired thrombophilia - If yes, enter type in comment: No Thrombosis Risk Factor Assessment Total Risk Factor Score: 1 Thrombosis Risk Factor Assessment Level: Low Risk
== END 2024-05-13 18:14 | disposition home or self-care (01) ==
LOC: EC 17:44 → 3SCARD 20:23
PROVIDERS: ADMIT Hospitalist; ATTEND Hospitalist
DX: R07.89 Other chest pain (principal); I34.0 Nonrheumatic mitral (valve) insufficiency; G90.A Postural orthostatic tachycardia syndrome [POTS]; J98.4 Other disorders of lung; M54.9 Dorsalgia, unspecified; F32.A Depression, unspecified; F41.9 Anxiety disorder, unspecified; F17.210 Nicotine dependence, cigarettes, uncomplicated; Z79.899 Other long term (current) drug therapy; Z88.1 Allergy status to other antibiotic agents; Z91.041 Radiographic dye allergy status; Z91.013 Allergy to seafood; Z86.79 Personal history of other diseases of the circulatory system; Z86.16 Personal history of COVID-19; Z87.09 Personal history of other diseases of the respiratory system
CPT/HCPCS: 96376; 96372; 96375; 96361; 96374; 99285; 36415; 93005; 93306; 85379; 83880; 80053 ×2; 83690; 83735 ×2; 84100; 84484 ×2; 85025 ×2; 85610; 85730; 71250; G0378 ×2; J2270 ×2; J3250; J1885

== ENCOUNTER 2024-06-02 07:05 | Day surgery (SDC) | payer BC ==
[2024-06-02 07:24] VITALS: TEMP 98
[2024-06-02] MEDS: LACTATED RINGERS 1,000 ML IV ONE (07:28)
[2024-06-02] MEDS: LACTATED RINGERS 1,000 ML IV SCH (07:30)
[2024-06-02] MEDS: ONDANSETRON 4 MG/2 ML VIAL IVP STA (07:49)
[2024-06-02] MEDS ORDERED: PROPOFOL 10 MG/ML 20 ML VIAL IV ONE (08:01)
[2024-06-02] MEDS ORDERED: LIDOCAINE 2% (PF) 20 MG/ML 5 ML VIAL ONE (08:01)
--- NOTE | 2024-06-02 08:26 | P.PCN ---
Date of Procedure: 06/02/24 Procedure(s) Performed: PREOPERATIVE DIAGNOSIS: Epigastric pain, change in bowel habits POSTOPERATIVE DIAGNOSIS: Mild gastritis, normal colon PROCEDURE: 1. EGD with biopsy 2. Colonoscopy with random biopsy ANESTHESIA: MAC SURGEON: Dontrell Hernandez M.D. SPECIMENS: Antrum, random colon ENDOSCOPIC PROCEDURE: The patient was on the endoscopy table in the left decubitus position. The Olympus gastroscope was inserted into the oropharynx and passed under direct visualization to the region of the third portion of the duodenum. From that point the scope was slowly withdrawn inspecting all surfaces carefully. There were no neoplastic inflammatory or polypoid lesions throughout the duodenum. The pylorus was widely patent. The stomach was carefully inspected. There was mild gastritis. A biopsy of the antrum took place to rule out H. pylori. Retroflexion revealed a normal hiatus. The esophagus was then carefully examined. There were no neoplastic inflammatory or polypoid lesions throughout the visualized esophagus. The patient was kept on the endoscopy table in the left decubitus position. The Olympus colonoscope was inserted into the anus and passed under direct visualization to the base of the cecum. The appendiceal orifice was visualized. From that point the scope was slowly withdrawn inspecting all surfaces carefully. There were no neoplastic inflammatory or polypoid lesions throughout the cecum, ascending, transverse, descending, sigmoid and rectum. There was no visible diverticulosis noted. Multiple biopsies of the colon took place to evaluate for microscopic colitis. Digital rectal examination was normal. The patient was taken to the recovery room in stable condition per anesthesia guidelines. RECOMMENDATIONS: Await biopsy results. If biopsy results negative will order CT abdomen pelvis to further evaluate the patient's complaints of abdominal discomfort.
[2024-06-02 08:44] VITALS: BP 109/75; PULSE 91; RESP 16
== END 2024-06-02 09:27 | disposition home or self-care (01) ==
LOC: ORWHC2ENDO 07:05
PROVIDERS: ATTEND Surgery
DX: K29.50 Unspecified chronic gastritis without bleeding (principal); I47.10 Supraventricular tachycardia, unspecified; G90.A Postural orthostatic tachycardia syndrome [POTS]; F17.200 Nicotine dependence, unspecified, uncomplicated; F41.9 Anxiety disorder, unspecified; F32.A Depression, unspecified; Z79.51 Long term (current) use of inhaled steroids; Z79.899 Other long term (current) drug therapy; Z91.89 Other specified personal risk factors, not elsewhere classified; Z88.1 Allergy status to other antibiotic agents; Z91.041 Radiographic dye allergy status; Z91.013 Allergy to seafood
CPT/HCPCS: 45380; 43239; 81025; J2405; J2704; J2003; 88305

== ENCOUNTER → 2024-06-10 | Outpatient (CLI) | payer BC ==
--- NOTE | 2024-06-10 12:15 | CT ---
EXAMINATION TYPE: CT abdomen pelvis w con CT DLP: 881 mGycm, Automated exposure control for dose reduction was used. DATE OF EXAM: 06/10/2024 11:06 AM COMPARISON: CT chest 05/12/2024, CT abdomen and pelvis 09/07/2010 CLINICAL INDICATION:Female, 43 years old with history of K37 UNSPECIFIED APPENDICITIS; Unspecified ap pendicitis, chest pain, N/D TECHNIQUE: Standard CT of the abdomen and pelvis following the administration of 100 cc of Isovue 3 00 IV contrast material and oral contrast. Coronal and sagittal reformats were performed. Patient was premedicated. FINDINGS: LOWER CHEST: Unremarkable ABDOMEN LIVER: Unremarkable GALLBLADDER AND BILE DUCTS: Unremarkable. PANCREAS: Unremarkable. SPLEEN: Unremarkable. ADRENAL GLANDS: Unremarkable. KIDNEYS AND URETERS: No evidence of hydronephrosis or renal calculus. The kidneys enhance symmetrical ly. Contrast is demonstrated within both collecting systems and proximal ureters on the delayed phase . PELVIS BLADDER: Unremarkable REPRODUCTIVE: Anteverted uterus with bulky heterogenous appearance within the region of the fundus. R ight ovarian 1.2 cm corpus luteum. ABDOMEN & PELVIS STOMACH AND BOWEL: Stomach and duodenum are unremarkable. No focal bowel wall thickening or surroundi ng inflammatory changes. Enteric contrast reaches the proximal transverse colon. The appendix is with in normal limits. No evidence of bowel obstruction. PERITONEUM: No evidence of pneumoperitoneum or free fluid. VASCULATURE: No evidence of aortic aneurysm. MUSCULOSKELETAL: No acute osseous abnormalities LYMPH NODES: No evidence for lymphadenopathy. SOFT TISSUE/ABDOMINAL WALL: Unremarkable IMPRESSION: 1. No CT evidence for acute abdominal/pelvic process. The appendix is within normal limits. 2. Bulky heterogenous appearance of the uterine fundus. May represent underlying fibroids. Consider f urther evaluation with pelvic ultrasound. [facility], , 06/10/2024 12:13 PM
== END | disposition home or self-care (01) ==
LOC: RADCTMAIN 10:03
PROVIDERS: ATTEND Surgery
DX: K37 Unspecified appendicitis (principal); R07.9 Chest pain, unspecified
CPT/HCPCS: 74177; Q9967

== ENCOUNTER → 2024-06-20 | Outpatient (CLI) | payer BC ==
--- NOTE | 2024-06-20 15:03 | US ---
EXAMINATION TYPE: US pelvis complete transvag DATE OF EXAM: 06/20/2024 COMPARISON: NONE CLINICAL INDICATION: Female, 43 years old with history of N93.9 ABNORMAL UTERINE AND VAGINAL BLEEDING ; Fibroids. TECHNIQUE: Transvaginal (TV) and Transabdominal (TA) . FINDINGS: EXAM MEASUREMENTS: Uterus: 7.1 x 8.5 x 6.1 cm Endometrial Stripe: Obscured Right Ovary: 3.1 x 1.9 x 2.1 cm 1. Uterus: Anteverted Multiple fibroids seen 1. 3.5 x 2.8 x 4.0 cm 2. 2.9 x 2.1 x 2.8 3. 2.7 x 2. 0 x 1.9 cm. 2. Endometrium: Obscured. 3. Right Ovary: wnl 4. Left Ovary: Obscured by overlying bowel gas 5. Bilateral Adnexa: wnl 6. Posterior cul-de-sac: wnl IMPRESSION: 1. No evidence for acute process. 2. Fibroid uterus. 3. Poor visualization of the endometrium secondary to fibroids. [facility], , 06/20/2024 3:00 PM
== END | disposition home or self-care (01) ==
LOC: RADUSWWP 14:28
PROVIDERS: ATTEND Obstetrics & Gynecology
DX: N93.9 Abnormal uterine and vaginal bleeding, unspecified (principal); D25.9 Leiomyoma of uterus, unspecified
CPT/HCPCS: 76830; 76856